=== PATIENT | female | born 1975 | race Caucasian/White ===

== ENCOUNTER → 2017-01-14 | Outpatient (CLI) | payer BC ==
--- NOTE | 2017-01-14 08:15 | CT ---
EXAMINATION TYPE: CT abdomen pelvis wo con DATE OF EXAM: 01/14/2017 COMPARISON: NONE HISTORY: Abdominal pain; Right flank & groin pain. History of renal stones. CT DLP: 732.90 mGycm Examination of the solid and hollow viscera is limited given the lack of contrast. FINDINGS: LUNG BASES: No evidence for nodule. No evidence for infiltrate. LIVER/GB: The gallbladder is unremarkable. No space-occupying hepatic lesion. PANCREAS: No pancreatic mass identified. No inflammatory process seen. SPLEEN: No evidence for splenomegaly. No intrasplenic lesions seen. ADRENALS: No adrenal nodules identified. No evidence for thickening. KIDNEYS: No evidence for renal mass. 1 cm on nonobstructing calculus in the region of the right renal pelvis. No additional renal calculi seen. No evidence for hydronephrosis at this time. BOWEL: Appendix has a normal appearance. No evidence of bowel obstruction. No inflammatory process. Lymph nodes: No evidence for adenopathy greater than 1 cm. Abdominal aorta: Atheromatous changes seen. No evidence for aneurysm. Genital organs: Hysterectomy changes. No evidence for adnexal mass.. Other: No significant abnormality. IMPRESSION: 1. NONOBSTRUCTING CALCULUS IN THE REGION OF THE RIGHT RENAL PELVIS DESCRIBED ABOVE.
== END | disposition home or self-care (01) ==
LOC: RADCTMAIN 07:29
PROVIDERS: ATTEND Family Medicine
DX: N20.0 Calculus of kidney (principal)
CPT/HCPCS: 74176

== ENCOUNTER 2017-03-20 15:48 | Emergency (ER) | payer BC ==
[2017-03-20 16:03] VITALS: RESP 18
--- NOTE | 2017-03-20 17:30 | ED ---
General Adult HPI - General Chief complaint: Extremity Injury, Lower Stated complaint: right foot pain/swelling Time Seen by Provider: 03/20/17 16:01 Source: patient, RN notes reviewed Mode of arrival: ambulatory Limitations: no limitations - History of Present Illness Initial comments: This is a 41-year-old female who presents to the emergency department with chief complaint of right foot pain and swelling. Patient states that she had a right lithotripsy performed on February 24. One week later she noted that her right foot was swollen. She states that a couple days ago she noticed some bruising of the right foot and that it became painful. She states that last night she had some shooting of pain up her right calf. She states that toes 2 and 3 on the right foot feel numb and her foot feels like it is asleep. Patient states that since her procedure she has decreased activity. She has been working from the home and has not been using her treadmill regularly. She states that before the procedure she was getting at least 10,000 steps/day and recently has only been walking 4,000 steps/day. Patient states she looked online and is worried that she may have a blood clot in the right lower extremity. Denies any oral contraceptives, she received a hysterectomy many years ago. Denies any specific injury or trauma to the right foot. Patient states "I would know if I hurt myself." Denies fever, chills, chest pain, shortness of breath, abdominal pain, nausea or vomiting, constipation or diarrhea, dysuria or hematuria, numbness or tingling, headache or vision changes. - Related Data Home Medications Medication Instructions Recorded Confirmed Cyanocobalamin (Vitamin B-12) 1,000 mcg PO DAILY 03/20/17 03/20/17 [Vitamin B-12] Lisinopril [Prinivil] 10 mg PO DAILY 03/20/17 03/20/17 Montelukast [Singulair] 10 mg PO DAILY 03/20/17 03/20/17 [place]-3 Fatty Acids/Fish Oil [Fish 2 cap PO DAILY 03/20/17 03/20/17 Oil 1,000 mg Softgel] Terbinafine [LamISIL] 250 mg PO DAILY 03/20/17 03/20/17 Triamterene-Hctz 37.5-25Mg 1 cap PO Q7D 03/20/17 03/20/17 [Dyazide 37.5-25 Capsule] Vitamin B Complex 1 tab PO DAILY 03/20/17 03/20/17 Allergies Allergy/AdvReac Type Severity Reaction Status Date / Time No Known Allergies Allergy Verified 03/20/17 16:29 Review of Systems ROS Statement: Those systems with pertinent positive or pertinent negative responses have been documented in the HPI. ROS Other: All systems not noted in ROS Statement are negative. Past Medical History Past Medical History: Hypertension History of Any Multi-Drug Resistant Organisms: None Reported Additional Past Surgical History / Comment(s): lithotripsy Past Psychological History: No Psychological Hx Reported Smoking Status: Never smoker Past Alcohol Use History: Occasional Past Drug Use History: None Reported General Exam - General Exam Comments Initial Comments: General: Awake and alert, well-developed; in no apparent distress. HEENT: Head atraumatic, normocephalic. Pupils are equal, round and reactive to light. Extraocular movements intact. Neck: Supple. Normal ROM. Cardiovascular: Regular rate and rhythm. No murmurs, rubs or gallops. Chest symmetrical. Respiratory: Lungs clear to auscultation bilaterally. No wheezes, rales or rhonchi. Normal respiratory effort with no use of accessory muscles. Musculoskeletal: Normal active and passive range of motion of right ankle and foot. There is mild swelling to the ankle and dorsal foot with some bruising noted. There is no tenderness on palpation of the foot. Sensation is intact. Pedal pulses are 2+ equal and palpable bilaterally. Skin: Reed, warm and dry without rashes or lesions. Neurological: Alert and oriented x3. CN II-XII grossly intact. Speech is fluent and answers are appropriate. No focal neuro deficits. Psychiatric: Normal mood and affect. No overt signs of depression or anxiety noted. Limitations: no limitations Course Vital Signs 03/20/17 16:00 Temperature 97.9 F Pulse Rate 95 Respiratory 18 Rate Blood Pressure 154/96 O2 Sat by Pulse 97 Oximetry Medical Decision Making - Medical Decision Making This is a 41-year-old female who presents to the emergency department with chief complaint of right foot swelling and pain. She denied any specific injury or trauma to the foot. Ultrasound Venous Doppler of right lower extremity revealed no evidence for acute DVT. she does state that she deals with chronic edema due to hypertension. This case was discussed with attending physician, Dr. Bernstein. Recommended follow up with her primary care provider. Patient's vital signs are stable and she is in no acute distress. She'll be discharged home at this time. She voices understanding. All questions were answered. - Radiology Data Radiology results: report reviewed Ultrasound Venous Doppler right lower extremity impression: Negative for DVT. Disposition Clinical Impression: Foot swelling Disposition: HOME SELF-CARE Condition: Good Instructions: Leg Edema (ED) Additional Instructions: Please follow up with primary care provider within 1-2 days. Return to emergency department if symptoms should worsen or any concerns arise. Referrals: Nydia Acosta DO [Primary Care Provider] - 1-2 days Time of Disposition: 18:32
--- NOTE | 2017-03-20 17:48 | US ---
EXAMINATION TYPE: US venous doppler duplex LE RT DATE OF EXAM: 03/20/2017 5:30 PM COMPARISON: NONE CLINICAL HISTORY: pain and swelling. Right leg edema SIDE PERFORMED: Right TECHNIQUE: The lower extremity deep venous system is examined utilizing real time linear array sonog kristen with graded compression, doppler sonography and color-flow sonography. VESSELS IMAGED: External Iliac Vein (EIV) Common Femoral Vein Deep Femoral Vein Greater Saphenous Vein * Femoral Vein Popliteal Vein Small Saphenous Vein * Proximal Calf Veins (* superficial vessels) DESCRIPTION: Grayscale, color doppler, spectral doppler imaging performed of the deep veins of the lo wer extremities. There is normal flow, compressibility, vascular waveforms. IMPRESSION: NEGATIVE FOR DVT, RIGHT LOWER EXTREMITY.
[2017-03-20 18:43] VITALS: BP 134/87; PULSE 87; TEMP 97.4
== END 2017-03-20 18:43 | disposition home or self-care (01) ==
LOC: EC 15:48
DX: M79.89 Other specified soft tissue disorders (principal); M79.671 Pain in right foot; M79.661 Pain in right lower leg; R60.0 Localized edema; I10 Essential (primary) hypertension; Z79.899 Other long term (current) drug therapy
CPT/HCPCS: 99283

== ENCOUNTER → 2017-12-15 | Outpatient (CLI) | payer BC ==
--- NOTE | 2017-12-15 16:17 | CT ---
EXAMINATION TYPE: CT abdomen pelvis wo con DATE OF EXAM: 12/15/2017 COMPARISON: 03/04/2017 HISTORY: RLQ pain CT DLP: 1073 mGycm Automated exposure control for dose reduction was used. TECHNIQUE: Helical acquisition of images was performed from the lung bases through the pelvis. FINDINGS: LUNG BASES: No significant abnormality is appreciated. LIVER/GB: No significant abnormality is appreciated. PANCREAS: Pancreatic tail calcification noted. SPLEEN: Furnace Puncher a splenule noted.. ADRENALS: No significant abnormality is seen. KIDNEYS: No significant abnormality is seen. ADENOPATHY: None visualized. OSSEOUS STRUCTURES: Sclerotic densities involving the vertebral bodies are nonspecific. Hypertrophic changes of the spine noted.. BOWEL: The stomach is distended. Appendix is normal.. OTHER: Prominent soft tissue densities are seen in the pelvis measuring 4 cm on the right. Likely rel ated to the ovaries. Recommend pelvic ultrasound. Tiny fat-containing periumbilical hernia noted. IMPRESSION: 1. The stomach is distended with debris correlate for gastroparesis or gastric outlet obstruction. 2. There are prominent soft tissue densities in both adnexa likely related to ovaries. Correlation [facility] pelvic ultrasound is recommended to assess for ovarian pathology. 3. Normal appendix
--- NOTE | 2017-12-15 18:31 | US ---
EXAMINATION TYPE: US pelvic complete DATE OF EXAM: 12/15/2017 COMPARISON: NONE CLINICAL HISTORY: N83.9 Noninflam disorder of ovary. F/U to CT scan TECHNIQUE: Transabdominal (TA). EXAM MEASUREMENTS: Uterus: Surgically absent cm Endometrial Stripe: Surgically absent cm Right Ovary: 2.9 x 3.5 x 2.5 cm Left Ovary: 3.5 x 2.4 x 2.4 cm 1. Uterus: Surgically absent 2. Endometrium: Surgically absent 3. Right Ovary: wnl 4. Left Ovary: wnl 5. Bilateral Adnexa: wnl 6. Posterior cul-de-sac: wnl IMPRESSION: Hysterectomy noted. No adnexal mass or free fluid.
== END | disposition home or self-care (01) ==
LOC: RADCTMAIN 15:44
PROVIDERS: ATTEND Family Medicine
DX: K31.89 Other diseases of stomach and duodenum (principal); N83.8 Other noninflammatory disorders of ovary, fallopian tube and broad ligament; Z90.710 Acquired absence of both cervix and uterus
CPT/HCPCS: 74176; 76856

== ENCOUNTER → 2018-01-22 | Outpatient (CLI) | payer BC ==
--- NOTE | 2018-01-22 11:11 | US ---
EXAMINATION TYPE: US abdomen complete DATE OF EXAM: 01/22/2018 COMPARISON: CT 12/15/2017 CLINICAL HISTORY: R10.9 Abdominal Pain. Right flank pain EXAM MEASUREMENTS: Liver Length: 16.9 cm Gallbladder Wall: 0.1 cm CBD: 0.2 cm Spleen: 10.2 cm Right Kidney: 11.7 x 4.2 x 4.9 cm Left Kidney: 10.9 x 4.5 x 4.2 cm Pancreas: Obscured by bowel gas, visualized portions wnl Liver: Heterogeneous Gallbladder: wnl Evidence for sonographic Yost's sign: No CBD: wnl Spleen: Accessory spleen measuring 1.3 cm Right Kidney: No hydronephrosis or masses seen Left Kidney: No hydronephrosis or masses seen Upper IVC: wnl Abd Aorta: wnl Kidneys show normal cortical medullary differentiation. There is no ascites. IMPRESSION: Exam is somewhat limited. There may be a component of underlying hepatocellular disease, hepatic steatosis.
== END ==
LOC: RADUSWWP 10:17
PROVIDERS: ATTEND Family Medicine
DX: R10.9 Unspecified abdominal pain (principal)
CPT/HCPCS: 76700

== ENCOUNTER → 2019-09-28 | Outpatient (CLI) | payer BC ==
--- NOTE | 2019-09-28 15:39 | US ---
EXAMINATION TYPE: US venous doppler duplex LE RT DATE OF EXAM: 09/28/2019 1:16 PM COMPARISON: US 2017 CLINICAL HISTORY: M79.604 PAIN IN RT LEG. Intermittent right leg swelling x 2 weeks, patient taking a spirin SIDE PERFORMED: Right TECHNIQUE: The lower extremity deep venous system is examined utilizing real time linear array sonog kristen with graded compression, doppler sonography and color-flow sonography. VESSELS IMAGED: External Iliac Vein (EIV) Common Femoral Vein Deep Femoral Vein Greater Saphenous Vein * Femoral Vein Popliteal Vein Small Saphenous Vein * Proximal Calf Veins (* superficial vessels) Right Leg: Appears negative for DVT IMPRESSION: 1. Right lower extremity ultrasound negative for deep venous thrombosis
== END | disposition home or self-care (01) ==
LOC: RADUSWWP 12:55
PROVIDERS: ATTEND Family Medicine
DX: M79.604 Pain in right leg (principal)

== ENCOUNTER 2020-06-10 06:49 | Inpatient (IN) | payer BC ==
[2020-06-10] MEDS ORDERED: SODIUM CHLORIDE 0.9% 500 ML 500 ML IV STA (07:03)
[2020-06-10] MEDS ORDERED: DEXAMETHASONE SOD PHOSPHATE 10 MG/ML 1 ML VIAL IV STA (07:05)
[2020-06-10] MEDS ORDERED: IBUPROFEN 600 MG TAB PO STA (07:05)
--- NOTE | 2020-06-10 07:08 | ED ---
General Adult HPI - General Source: patient, RN notes reviewed Mode of arrival: ambulatory Limitations: no limitations <Britton Gutierrez - Last Filed: 06/10/20 09:29> <Ryan Gonzalez - Last Filed: 06/10/20 09:40> - General Chief complaint: Shortness of Breath Stated complaint: Covid + Time Seen by Provider: 06/10/20 06:58 - History of Present Illness Initial comments: 44-year-old female presents emergency Department with chief complaint of shortness of breath. Patient states she started 8 days ago with cough and cold- like symptoms. Patient tested positive for covid 19 on Friday. Patient states that her symptoms have progressively worsened. Patient does have mild asthma. Patient reports no fevers or chills. Denies any chest pain states is just tight no leg pain and leg swelling. No history DVT or PE. Patient has slight nausea no vomiting. She did take some callus morning or Motrin. Patient's been having on and off fevers. Patient states that she woke up her pulse ox was 78. Patient states she was able to get up to the 90s. (Britton Gutierrez) - Related Data Home Medications Medication Instructions Recorded Confirmed Cyanocobalamin (Vitamin B-12) 1,000 mcg PO DAILY 03/20/17 03/20/17 [Vitamin B-12] Lisinopril [Prinivil] 10 mg PO DAILY 03/20/17 03/20/17 Montelukast [Singulair] 10 mg PO DAILY 03/20/17 03/20/17 [place]-3 Fatty Acids/Fish Oil [Fish 2 cap PO DAILY 03/20/17 03/20/17 Oil 1,000 mg Softgel] Terbinafine [LamISIL] 250 mg PO DAILY 03/20/17 03/20/17 Triamterene-Hctz 37.5-25Mg 1 cap PO Q7D 03/20/17 03/20/17 [Dyazide 37.5-25 Capsule] Vitamin B Complex 1 tab PO DAILY 03/20/17 03/20/17 Allergies Allergy/AdvReac Type Severity Reaction Status Date / Time No Known Allergies Allergy Verified 06/10/20 06:53 Review of Systems ROS Other: All systems not noted in ROS Statement are negative. <Britton Gutierrez - Last Filed: 06/10/20 09:29> ROS Other: All systems not noted in ROS Statement are negative. <CarlosRyan - Last Filed: 06/10/20 09:40> ROS Statement: Those systems with pertinent positive or pertinent negative responses have been documented in the HPI. Past Medical History Past Medical History: Hypertension History of Any Multi-Drug Resistant Organisms: None Reported Past Surgical History: Hysterectomy, Tonsillectomy Additional Past Surgical History / Comment(s): lithotripsy Past Psychological History: No Psychological Hx Reported Smoking Status: Never smoker Past Alcohol Use History: Rare Past Drug Use History: None Reported <Britton Gutierrez - Last Filed: 06/10/20 09:29> General Exam Limitations: no limitations General appearance: alert, in no apparent distress Head exam: Present: atraumatic, normocephalic, normal inspection Eye exam: Present: normal appearance, PERRL, EOMI. Absent: scleral icterus, conjunctival injection, periorbital swelling ENT exam: Present: normal exam, normal oropharynx, mucous membranes moist, TM's normal bilaterally Neck exam: Present: normal inspection, full ROM. Absent: tenderness, menin gismus, lymphadenopathy Respiratory exam: Present: normal lung sounds bilaterally. Absent: respiratory distress, wheezes, rales, rhonchi, stridor Cardiovascular Exam: Present: normal rhythm, tachycardia, normal heart sounds. Absent: systolic murmur, diastolic murmur, rubs, gallop, clicks GI/Abdominal exam: Present: soft, normal bowel sounds. Absent: distended, tenderness, guarding, rebound, rigid Back exam: Absent: CVA tenderness (R), CVA tenderness (L) Neurological exam: Present: alert, oriented X3 Skin exam: Present: warm, dry, intact, normal color. Absent: rash <Britton Gutierrez - Last Filed: 06/10/20 09:29> Course <CarlosRyan - Last Filed: 06/10/20 09:40> Vital Signs 06/10/20 06/10/20 06/10/20 06:53 07:08 09:25 Temperature 99.6 F 98.9 F Pulse Rate 124 H 126 H 96 Respiratory 18 20 18 Rate Blood Pressure 130/80 125/83 O2 Sat by Pulse 92 L 95 95 Oximetry - Reevaluation(s) Reevaluation #1: 06/10/20 09:40 Case reviewed with patient will be admitted I do agree with the assessment and plan. (Ryan Gonzalez) EKG Findings - EKG Comments: EKG Findings:: EKG performed at 17:09 sinus tachycardia rate 120. 160 QRS 86 QTC is QTC 312/440 <Britton Gutierrez - Last Filed: 06/10/20 09:29> Medical Decision Making - Lab Data Result diagrams: 06/10/20 07:25 06/10/20 07:25 <Britton Gutierrez - Last Filed: 06/10/20 09:29> - Lab Data Result diagrams: 06/10/20 07:25 06/10/20 07:25 <Ryan Gonzalez - Last Filed: 06/10/20 09:40> - Medical Decision Making 44-year-old presented for dyspnea. Patient has a known covid Positive. Patient has bilateral infiltrates. Negative for PE. Patient was hypoxic. Patient is improved on oxygen currently. Case discussed with Dr. Enriquez was admitted with pulmonary and infectious disease consult. (Britton Gutierrez) - Lab Data Lab Results 06/10/20 06/10/20 06/10/20 Range/Units 07:25 07:25 07:25 WBC 9.6 (3.8-10.6) k/uL RBC 4.54 (3.80-5.40) m/uL Hgb 13.9 (11.4-16.0) gm/dL Hct 41.7 (34.0-46.0) % MCV 91.8 (80.0-100.0) fL MCH 30.5 (25.0-35.0) pg MCHC 33.2 (31.0-37.0) g/dL RDW 13.7 (11.5-15.5) % Plt Count 202 (150-450) k/uL MPV 7.5 Neutrophils % 88 % Lymphocytes % 7 % Monocytes % 3 % Eosinophils % 0 % Basophils % 0 % Neutrophils # 8.5 H (1.3-7.7) k/uL Lymphocytes # 0.7 L (1.0-4.8) k/uL Monocytes # 0.3 (0-1.0) k/uL Eosinophils # 0.0 (0-0.7) k/uL Basophils # 0.0 (0-0.2) k/uL PT 10.0 (9.0-12.0) sec INR 0.9 (<1.2) APTT 22.9 (22.0-30.0) sec D-Dimer 0.75 H (<0.60) mg/L FEU Sodium 133 L (137-145) mmol/L Potassium 4.1 (3.5-5.1) mmol/L Chloride 97 L (98-107) mmol/L Carbon Dioxide 22 (22-30) mmol/L Anion Gap 14 mmol/L BUN 15 (7-17) mg/dL Creatinine 0.60 (0.52-1.04) mg/dL Est GFR (CKD-EPI)AfAm >90 (>60 ml/min/1.73 sqM) Est GFR (CKD-EPI)NonAf >90 (>60 ml/min/1.73 sqM) Glucose 220 H (74-99) mg/dL Plasma Lactic Acid Aime (0.7-2.0) mmol/L Calcium 8.9 (8.4-10.2) mg/dL Magnesium 1.8 (1.6-2.3) mg/dL Total Bilirubin 0.9 (0.2-1.3) mg/dL AST 60 H (14-36) U/L ALT 36 H (4-34) U/L Alkaline Phosphatase 136 H (38-126) U/L Troponin I (0.000-0.034) ng/mL C-Reactive Protein 262.5 H (<10.0) mg/L Total Protein 7.7 (6.3-8.2) g/dL Albumin 4.1 (3.5-5.0) g/dL 06/10/20 06/10/20 Range/Units 07:25 07:25 WBC (3.8-10.6) k/uL RBC (3.80-5.40) m/uL Hgb (11.4-16.0) gm/dL Hct (34.0-46.0) % MCV (80.0-100.0) fL MCH (25.0-35.0) pg MCHC (31.0-37.0) g/dL RDW (11.5-15.5) % Plt Count (150-450) k/uL MPV Neutrophils % % Lymphocytes % % Monocytes % % Eosinophils % % Basophils % % Neutrophils # (1.3-7.7) k/uL Lymphocytes # (1.0-4.8) k/uL Monocytes # (0-1.0) k/uL Eosinophils # (0-0.7) k/uL Basophils # (0-0.2) k/uL PT (9.0-12.0) sec INR (<1.2) APTT (22.0-30.0) sec D-Dimer (<0.60) mg/L FEU Sodium (137-145) mmol/L Potassium (3.5-5.1) mmol/L Chloride (98-107) mmol/L Carbon Dioxide (22-30) mmol/L Anion Gap mmol/L BUN (7-17) mg/dL Creatinine (0.52-1.04) mg/dL Est GFR (CKD-EPI)AfAm (>60 ml/min/1.73 sqM) Est GFR (CKD-EPI)NonAf (>60 ml/min/1.73 sqM) Glucose (74-99) mg/dL Plasma Lactic Acid Aime 1.0 (0.7-2.0) mmol/L Calcium (8.4-10.2) mg/dL Magnesium (1.6-2.3) mg/dL Total Bilirubin (0.2-1.3) mg/dL AST (14-36) U/L ALT (4-34) U/L Alkaline Phosphatase (38-126) U/L Troponin I <0.012 (0.000-0.034) ng/mL C-Reactive Protein (<10.0) mg/L Total Protein (6.3-8.2) g/dL Albumin (3.5-5.0) g/dL Disposition <Britton Gutierrez - Last Filed: 06/10/20 09:29> <Ryan Gonzalez - Last Filed: 06/10/20 09:40> Clinical Impression: Pneumonia due to COVID-19 virus, Hypoxia Disposition: ADMITTED IP TO THIS HOSP Referrals: None,Stated [REFERRING] - 1-2 days
[2020-06-10 07:32] LABS: Basophils % (A) 0 %; Eosinophils % (A) 0 %; HCT 41.7 % (34.0-46.0); HGB 13.9 gm/dL (11.4-16.0); Lymphocytes # (A) 0.7 k/uL (1.0-4.8); Lymphocytes % (A) 7 %; MCH 30.5 pg (25.0-35.0); MCHC 33.2 g/dL (31.0-37.0); MCV 91.8 fL (80.0-100.0); Mean Platelet Volume 7.5; Monocytes # (A) 0.3 k/uL (0-1.0); Monocytes % (A) 3 %; Neutrophils # (A) 8.5 k/uL (1.3-7.7); Neutrophils % (A) 88 %; Platelet Count 202 k/uL (150-450); RBC 4.54 m/uL (3.80-5.40); RDW 13.7 % (11.5-15.5); WBC 9.6 k/uL (3.8-10.6)
[2020-06-10 07:46] LABS: ALT 36 U/L (4-34); African American GFR (CKD) >90 (>60 ml/min/1.73 sqM); Albumin 4.1 g/dL (3.5-5.0); Anion Gap 14 mmol/L; Blood Urea Nitrogen 15 mg/dL (7-17); Calcium 8.9 mg/dL (8.4-10.2); Carbon Dioxide 22 mmol/L (22-30); Chloride 97 mmol/L (98-107); Glucose 220 mg/dL (74-99); Non-African American GFR(CKD) >90 (>60 ml/min/1.73 sqM); Sodium 133 mmol/L (137-145); Total Bilirubin 0.9 mg/dL (0.2-1.3); Total Protein 7.7 g/dL (6.3-8.2)
[2020-06-10 07:58] LABS: INR 0.9 (<1.2); Partial Thromboplastin Time 22.9 sec (22.0-30.0)
[2020-06-10 08:05] LABS: D-Dimer 0.75 mg/L FEU (<0.60)
[2020-06-10 08:08] LABS: AST 60 U/L (14-36); Alkaline Phosphatase 136 U/L (38-126); Magnesium 1.8 mg/dL (1.6-2.3); Potassium 4.1 mmol/L (3.5-5.1)
[2020-06-10 08:31] LABS: C Reactive Protein 262.5 mg/L (<10.0)
--- NOTE | 2020-06-10 08:42 | XR ---
EXAMINATION TYPE: XR chest 2V DATE OF EXAM: 06/10/2020 COMPARISON: 03/14/2010 INDICATION: Difficulty breathing TECHNIQUE: Frontal and lateral views of the chest are obtained. FINDINGS: The heart size is normal. The pulmonary vasculature is prominent. There is fullness in the left perihilar region. Peripheral right upper lobe infiltrate is present. Mi ld left lower lobe infiltrate is present. Findings are nonspecific but can be compatible with atypica l pneumonia. IMPRESSION: 1. Diffuse scattered infiltrates can be compatible with atypical pneumonia in the proper clinical set ting.
--- NOTE | 2020-06-10 09:25 | CT ---
CT CHEST FOR PULMONARY EMBOLISM. EXAMINATION TYPE: CT chest angio for PE DATE OF EXAM: 06/10/2020 INDICATION: SOB, Covid positive CT DLP: 493.2 mGycm, Automated exposure control for dose reduction was used. CONTRAST: Patient injected with 63 mL of Isovue 370. COMPARISON: None TECHNIQUE: CT of the chest is performed on a spiral scan at 2 mm thick sections. Study is performed with intravenous contrast timed for evaluation for pulmonary embolism. This will limit additional po rtions of the evaluation. 3-D MIP images reconstructed by the technologist are reviewed on the compu ter in the coronal and sagittal planes. FINDINGS: No persistent filling defects are evident to suggest an acute pulmonary embolism. There is some hypod ensity within left perihilar pulmonary arteries in the coronal reconstructed images. However, this ap pears to be artifact in the axial plane. Some mild chronic nonobstructive thrombus could be considere d. This could be artifact from the contrast timing as well. There is fullness to the subcarinal region. The enlarged adenopathy may be present. A few small perih ilar lymph nodes may be present. Small pretracheal lymph nodes are present The ascending aorta diamet er at the level of the main pulmonary artery is 3.0 cm. The main pulmonary artery diameter at the bi furcation is 2.6 cm. Patchy groundglass opacities and infiltrates are present bilaterally greater in the periphery, compat ible with atypical pneumonia in the proper clinical setting. Limited CT section through the upper abdomen. There is mild fatty infiltration of the liver. IMPRESSIONS: 1. Scattered groundglass opacities bilateral lung peralta can be compatible with Covid Pneumonia. 2. No acute pulmonary embolism. Artifact or possibly some chronic thrombus within the left perihilar pulmonary arteries may be present.
[2020-06-10] MEDS ORDERED: IBUPROFEN 400 MG TAB PO PRN (09:39)
[2020-06-10] MEDS ORDERED: ONDANSETRON 4 MG/2 ML VIAL IVP PRN (09:39)
[2020-06-10] MEDS ORDERED: NALOXONE 0.4 MG/ML 1 ML VIAL IV PRN (09:39)
[2020-06-10] MEDS ORDERED: TRIAMTERENE-HCTZ 37.5-25MG 1 EACH CAP PO SCH (09:45)
[2020-06-10] MEDS ORDERED: REMDESIVIR 200 MG in SODIUM CHLORIDE 0.9% 250 ML IVPB ONE (11:00)
[2020-06-10] MEDS: ZINC SULFATE 220 MG CAP PO SCH (12:49)
[2020-06-10] MEDS: ASCORBIC ACID 500 MG TAB PO SCH (12:49)
[2020-06-10] MEDS: CHOLECALCIFEROL 25 MCG (1000 IU) TABLET PO SCH (12:49)
[2020-06-10] MEDS: ENOXAPARIN 40 MG/0.4 ML SYRINGE SQ SCH (12:50)
--- NOTE | 2020-06-10 13:44 | P.CNPUL ---
History of Present Illness Consult date: 06/10/20 Requesting physician: Ephraim Lira Reason for consult: dyspnea, cough, hypoxemia, pneumonia, abnormal CXR/CT Chief complaint: Shortness of breath, cough, fever. History of present illness: 44-year-old female, who presents to the emergency department, on June 10, complaining of shortness of breath, cough, chest congestion, fever, chills, muscle aches, and joint aches. She tested positive for COVID 19 on Friday. She has had symptoms for about 7 days. Her symptoms have gotten progressively worse. She denies any chest pain or pressure although she denies described pain in her chest when she coughs. She had slight nausea without vomiting. She was seen in the emergency room, and admitted with a diagnosis of COVID 19 pneumonia, and hypoxemic respiratory failure. Chest x-ray showed diffuse scattered infiltrates bilaterally, and computed tomography scan was negative for pulmonary embolism, but did show bilateral scattered groundglass opacities that are consistent with COVID 19. Currently, the patient's on 3 L nasal cannula. White count 9.6, hemoglobin 13.9, hematocrit 41.7, platelet count 202,000. PT INR and PTT all normal. D-dimer was 0.75. Sodium 133, potassium 4.1, chloride 97, CO2 22, anion gap 14, BUN 15, and creatinine 0.60. Review of Systems REVIEW OF SYSTEMS: CONSTITUTIONAL: Fever, chills, muscle aches, joint aches, and fatigue. NEUROLOGIC: [ Negative.] HEENT: [ Negative.] CARDIAC: [Negative.] PULMONARY: Shortness of breath, cough, chest congestion, chest tightness. GI: Nausea. : [Negative.] RHEUMATOLOGIC: [ Negative.] IMMUNOLOGIC: [ Negative.] ENDOCRINE: [Negative. ] DERMATOLOGIC: [Negative.] Past Medical History Past Medical History: Hypertension History of Any Multi-Drug Resistant Organisms: None Reported Past Surgical History: Hysterectomy, Tonsillectomy Additional Past Surgical History / Comment(s): lithotripsy Past Psychological History: No Psychological Hx Reported Smoking Status: Never smoker Past Alcohol Use History: Rare Past Drug Use History: None Reported Medications and Allergies Home Medications Medication Instructions Recorded Confirmed Type Losartan [Cozaar] 50 mg PO DAILY 06/10/20 06/10/20 History Multivitamins, Thera [Multivitamin 1 tab PO DAILY 06/10/20 06/10/20 History (formulary)] Sertraline [Zoloft] 100 mg PO HS 06/10/20 06/10/20 History Allergies Allergy/AdvReac Type Severity Reaction Status Date / Time No Known Allergies Allergy Verified 06/10/20 09:58 Physical Exam Osteopathic Statement: *. No significant issues noted on an osteopathic structural exam other than those noted in the History and Physical/Consult. Vitals: Vital Signs Temp Pulse Pulse Resp BP BP Pulse Ox 06/10/20 11:32 93 L 06/10/20 10:35 98.2 F 76 18 113/71 94 L 06/10/20 09:25 98.9 F 96 18 125/83 95 06/10/20 07:08 126 H 20 95 06/10/20 06:53 99.6 F 124 H 18 130/80 92 L Intake and Output 06/09/20 06/10/20 06/10/20 22:59 06:59 14:59 Other: Weight 111.266 kg 111.266 kg No acute distress, oriented 3. Currently on nasal O2 at 3 L with a saturation 93%. No conversational dyspnea, or use of accessory muscles. HEENT examination is grossly unremarkable. Mucous membranes are moist. No oral lesions. Neck supple. Full range of motion. No adenopathy thyromegaly or neck vein distention. Cardiovascular examination reveals regular rhythm rate. S1-S2 normal. No S3 or S4. No discernible murmur noted. Heart rate 76 bpm. Lungs reveal bilateral rhonchi and crackles. Breath sounds equal bilaterally. No wheezes are auscultated. Breath sounds equal bilaterally. Abdomen soft bowel sounds are heard. No masses or tenderness. Extremities are intact. No cyanosis clubbing or edema. Skin is without rash or lesion. Neurologic examination is brief but nonfocal. Results - Laboratory Findings CBC and BMP: 06/10/20 07:25 06/10/20 07:25 PT/INR, D-dimer PT 10.0 sec (9.0-12.0) 06/10/20 07:25 INR 0.9 (<1.2) 06/10/20 07:25 D-Dimer 0.75 mg/L FEU (<0.60) H 06/10/20 07:25 Abnormal lab findings: Abnormal Labs 06/10/20 06/10/20 06/10/20 07:25 07:25 07:25 Neutrophils # 8.5 H Lymphocytes # 0.7 L D-Dimer 0.75 H Sodium 133 L Chloride 97 L Glucose 220 H AST 60 H ALT 36 H Alkaline Phosphatase 136 H C-Reactive Protein 262.5 H - Diagnostic Findings Chest x-ray: image reviewed CT scan - chest: image reviewed Assessment and Plan Assessment: Acute hypoxemic respiratory failure secondary to COVID 19 pneumonia. History of hypertension. History of lithotripsy. Plan: Plan dated 06/10/2020. Because the patient's symptoms began about 7 days ago, she will get a REM, as well as Decadron, zinc, vitamin C, vitamin D3, Lovenox, and Decadron. We will continue to watch as patient very closely to see whether or not she responds to medications, or she deteriorates. Additional recommendations and suggestions are forthcoming. We will continue to see this patient. Prognosis is guarded. Chest x-ray, and CAT scan are reviewed. Laboratory data is reviewed. All this is explained to the patient in detail. Time with Patient: Greater than 30
--- NOTE | 2020-06-10 16:46 | P.HPIM ---
History of Present Illness H&P Date: 06/10/20 Chief Complaint: Shortness of breath 44-year-old female, who presents to the emergency department, on June 10, complaining of shortness of breath, cough, chest congestion, fever, chills, muscle aches, and joint aches. She tested positive for COVID 19 on Friday. She has had symptoms for about 7 days. Her symptoms have gotten progressively worse. She denies any chest pain or pressure although she denies described pain in her chest when she coughs. She had slight nausea without vomiting. She was seen in the emergency room, and admitted with a diagnosis of COVID 19 pneumonia, and hypoxemic respiratory failure. Chest x-ray showed diffuse scattered infiltrates bilaterally, and computed tomography scan was negative for pulmonary embolism, but did show bilateral scattered groundglass opacities that are consistent with COVID 19. Currently, the patient's on 3 L nasal cannula. White count 9.6, hemoglobin 13.9, hematocrit 41.7, platelet count 202,000. PT INR and PTT all normal. D-dimer was 0.75. Sodium 133, potassium 4.1, chloride 97, CO2 22, anion gap 14, BUN 15, and creatinine 0.60. Review of Systems REVIEW OF SYSTEMS: CONSTITUTIONAL: No fever, no malaise, no fatigue. HEENT: No recent visual problems or hearing problems. Denied any sore throat. CARDIOVASCULAR: No chest pain, orthopnea, PND, no palpitations, no syncope. PULMONARY: Reports shortness of breath, cough, no hemoptysis. GASTROINTESTINAL: No diarrhea, no nausea, no vomiting, no abdominal pain. NEUROLOGICAL: No headaches, no weakness, no numbness. HEMATOLOGICAL: Denies any bleeding or petechiae. GENITOURINARY: Denies any burning micturition, frequency, or urgency. MUSCULOSKELETAL/RHEUMATOLOGICAL: Denies any joint pain, swelling, or any muscle pain. ENDOCRINE: Denies any polyuria or polydipsia. The rest of the 14-point review of systems is negative. Past Medical History Past Medical History: Hypertension History of Any Multi-Drug Resistant Organisms: None Reported Past Surgical History: Hysterectomy, Tonsillectomy Additional Past Surgical History / Comment(s): lithotripsy Past Psychological History: No Psychological Hx Reported Smoking Status: Never smoker Past Alcohol Use History: Rare Past Drug Use History: None Reported Medications and Allergies Home Medications Medication Instructions Recorded Confirmed Type Losartan [Cozaar] 50 mg PO DAILY 06/10/20 06/10/20 History Multivitamins, Thera [Multivitamin 1 tab PO DAILY 06/10/20 06/10/20 History (formulary)] Sertraline [Zoloft] 100 mg PO HS 06/10/20 06/10/20 History Allergies Allergy/AdvReac Type Severity Reaction Status Date / Time No Known Allergies Allergy Verified 06/10/20 09:58 Physical Exam Vitals: Vital Signs Temp Pulse Pulse Resp BP BP Pulse Ox 06/10/20 11:32 93 L 06/10/20 10:35 98.2 F 76 18 113/71 94 L 06/10/20 09:25 98.9 F 96 18 125/83 95 06/10/20 07:08 126 H 20 95 06/10/20 06:53 99.6 F 124 H 18 130/80 92 L Intake and Output 06/09/20 06/10/20 06/10/20 22:59 06:59 14:59 Other: Weight 111.266 kg 111.266 kg - Constitutional General appearance: Present: average body habitus, cooperative, no acute distress - EENT Eyes: Present: anicteric sclerae, EOMI, PERRLA, normal appearance ENT: Present: hearing grossly normal, normal oropharynx Ears: bilateral: normal - Neck Neck: Present: normal ROM. Absent: lymphadenopathy, rigidity, thyromegaly Carotids: negative: bruit present Thyroid: bilateral: normal size, negative: enlarged, nodule - Respiratory Respiratory: bilateral: CTA, negative: rales, rhonchi, wheezing - Cardiovascular Rhythm: regular Heart sounds: normal: S1, S2 Abnormal Heart Sounds: Absent: systolic murmur, diastolic murmur - Gastrointestinal General gastrointestinal: Present: normal bowel sounds, soft. Absent: distended, organomegaly, tenderness - Genitourinary Genitourinary Comment(s): deferred - Integumentary Integumentary: Present: normal turgor. Absent: jaundiced, rash, ulcer - Neurologic Neurologic: Present: CNII-XII intact. Absent: focal deficits - Musculoskeletal Musculoskeletal: Present: gait normal, strength equal bilaterally - Psychiatric Psychiatric: Present: A&O x's 3, appropriate affect, intact judgment & insight Results CBC & Chem 7: 06/10/20 07:25 06/10/20 07:25 Labs: Abnormal Lab Results - Last 24 Hours (Table) 06/10/20 06/10/20 06/10/20 Range/Units 07:25 07:25 07:25 Neutrophils # 8.5 H (1.3-7.7) k/uL Lymphocytes # 0.7 L (1.0-4.8) k/uL D-Dimer 0.75 H (<0.60) mg/L FEU Sodium 133 L (137-145) mmol/L Chloride 97 L (98-107) mmol/L Glucose 220 H (74-99) mg/dL AST 60 H (14-36) U/L ALT 36 H (4-34) U/L Alkaline Phosphatase 136 H (38-126) U/L C-Reactive Protein 262.5 H (<10.0) mg/L Thrombosis Risk Factor Assmnt - Choose All That Apply Each Factor Represents 1 point: Age 41-60 years Thrombosis Risk Factor Assessment Total Risk Factor Score: 1 Thrombosis Risk Factor Assessment Level: Low Risk Assessment and Plan Assessment: 1. Acute hypoxemic respiratory failure - O2 per nasal cannula and titrated to keep SpO2 greater than 90-92% 2. Covid 19 viral pneumonia - patient's symptoms began about 7 days ago, she will get a REM, as well as Decadron, zinc, vitamin C, vitamin D3, Lovenox, and Decadron. We will continue to watch as patient very closely to see whether or not she responds to medications, or she deteriorates. Additional recommendations and suggestions are forthcoming. 3. Hypertension; losartan 50 mg by mouth daily 4. Transaminitis; possibly secondary to 2; we will continue to monitor liver enzymes with plans to order hepatic ultrasound if liver enzymes continue to trend up 5. Depression; Zoloft 100 mg by mouth daily at bedtime DVT prophylaxis; SCDs/subcu Lovenox CODE STATUS; full code
[2020-06-10] MEDS: ACETAMINOPHEN TAB 325 MG TAB PO PRN ×2 (17:00→23:37)
[2020-06-10] MEDS: SERTRALINE 100 MG TAB PO SCH (20:07)
--- NOTE | 2020-06-11 07:27 | CONS ---
CONSULTATION DATE OF SERVICE: 06/10/2020 REASON FOR CONSULTATION: COVID-19 infection. HISTORY OF PRESENT ILLNESS: The patient is a 44-year-old female presenting to the ER early this morning for evaluation of increased shortness of breath, cough, congestion and fever. The patient's symptoms have been going on for about 7 days before presentation to the hospital. The patient denies having any headache. She is complaining of some sore throat initially along with weakness and body aches. Subsequently starting having shortness of breath on minimal exertion, even at rest. The patient also has a cough which is moderate in intensity, not bringing up any sputum. Some nausea but no vomiting and denies significant diarrhea. The patient apparently was tested positive for COVID-19 on Friday. With progressive and worsening symptoms, the patient did present to the hospital. On arrival to the ER, the patient did have a low-grade fever of 99.6. The patient did have hypoxemia with O2 sats of 82% on room air, currently 90% on 3 L nasal cannula. The patient did have a normal white count with lymphopenia. D- dimer was mildly elevated at 0.75, creatinine was normal with an elevated CRP of 262.5. The patient did have a chest x-ray with diffuse scattered infiltrate compatible with atypical pneumonia. The patient also had a CT angiogram of the chest that was negative for PE but did shows patchy ground-glass opacity and infiltrate bilaterally. The patient has been admitted to the hospital. Infectious Disease was consulted for further management. REVIEW OF SYSTEMS: Positive points have been mentioned in HPI. Rest of the systems are negative. PAST MEDICAL HISTORY: Hypertension. PAST SURGICAL HISTORY: Hysterectomy and tonsillectomy. Lithotripsy. SOCIAL HISTORY: Patient denies smoking. Rarely drinks. No drug use. FAMILY HISTORY: No pertinent findings noticed. ALLERGIES: No known drug allergies. MEDICATIONS: The patient is currently on Tylenol, vitamin C, dexamethasone, Lovenox, Cozaar, Theragran, Narcan, Zofran, remdesivir and zinc. PHYSICAL EXAMINATION: VITAL SIGNS: Blood pressure 121/75 with a pulse of 105, temperature 98.6, she is 98% on 3 L nasal cannula. GENERAL DESCRIPTION: Patient is a middle-aged female lying in bed in no distress. No tachypnea or accessory muscles of respiration use. HEENT: Examination shows no pallor or scleral icterus. Oral mucous membrane is dry. NECK: Trachea central, no thyromegaly. LUNGS: Unlabored breathing, coarse breath sounds at the bases bilaterally. No wheeze. HEART: S1-S2, regular rate and rhythm. ABDOMEN: Soft, no tenderness. No guarding or rigidity. EXTREMITIES: No edema of the feet. SKIN: No rash or mass palpable. NEUROLOGICAL: Patient is awake, alert, oriented times three. Mood and affect normal. LABS: Hemoglobin is 13.8, white count 9.6. D-dimer is 0.75, creatinine 0.60. Electrolytes have been normal. Liver enzymes are elevated. CRP of 262. CT angiogram of the chest report as mentioned above. DIAGNOSTIC IMPRESSION: Patient admitted to the hospital with increasing shortness of breath and cough. This patient's symptoms have been going on for about a week before presentation to the hospital, likely secondary to acute COVID-19 infection in this patient who does have evidence of hypoxemia and duration of symptom qualifies for remdesivir therapy. PLAN: 1. Patient has been started on remdesivir protocol to continue. 2. Lovenox, dexamethasone, zinc, ascorbic acid. 3. Droplet isolation and respiratory support. 4. We will follow on clinical condition to further adjust medication if needed. Thank you for this consultation. Will follow this patient along with you. MMODL / IJN: [id number] /
[2020-06-11] MEDS ORDERED: MONTELUKAST 10 MG TAB PO SCH (09:00)
[2020-06-11] MEDS ORDERED: lisinopriL 10 MG TAB PO SCH (09:00)
[2020-06-11] MEDS: CHOLECALCIFEROL 25 MCG (1000 IU) TABLET PO SCH (09:03)
[2020-06-11] MEDS: ASCORBIC ACID 500 MG TAB PO SCH (09:03)
[2020-06-11] MEDS: MULTIVITAMINS, THERA 1 EACH TAB PO SCH (09:03)
[2020-06-11] MEDS: ZINC SULFATE 220 MG CAP PO SCH (09:03)
[2020-06-11] MEDS: LOSARTAN 50 MG TAB PO SCH (09:03)
[2020-06-11] MEDS: REMDESIVIR 100 MG in SODIUM CHLORIDE 0.9% 250 ML IVPB SCH (09:03)
[2020-06-11] MEDS: dexAMETHasone 2 MG TAB PO SCH (09:04)
[2020-06-11] MEDS: ENOXAPARIN 40 MG/0.4 ML SYRINGE SQ SCH (09:04)
[2020-06-11 11:50] LABS: Basophils % (A) 0 %; Eosinophils % (A) 0 %; HCT 41.5 % (34.0-46.0); HGB 13.6 gm/dL (11.4-16.0); Lymphocytes # (A) 0.9 k/uL (1.0-4.8); Lymphocytes % (A) 8 %; MCH 30.3 pg (25.0-35.0); MCHC 32.9 g/dL (31.0-37.0); MCV 92.2 fL (80.0-100.0); Mean Platelet Volume 7.2; Monocytes # (A) 0.3 k/uL (0-1.0); Monocytes % (A) 3 %; Neutrophils % (A) 88 %; Platelet Count 241 k/uL (150-450); RDW 13.4 % (11.5-15.5); WBC 11.3 k/uL (3.8-10.6)
[2020-06-11 12:04] LABS: ALT 34 U/L (4-34); AST 51 U/L (14-36); African American GFR (CKD) >90 (>60 ml/min/1.73 sqM); Albumin 3.5 g/dL (3.5-5.0); Albumin/Globulin Ratio 1.1; Alkaline Phosphatase 126 U/L (38-126); Anion Gap 8 mmol/L; Bilirubin,Unconjugated 0.4 mg/dL (0.0-1.1); Blood Urea Nitrogen 16 mg/dL (7-17); Calcium 8.7 mg/dL (8.4-10.2); Carbon Dioxide 28 mmol/L (22-30); Chloride 97 mmol/L (98-107); Globulin 3.1 g/dL; Glucose 193 mg/dL (74-99); LDH 881 U/L (313-618); Non-African American GFR(CKD) >90 (>60 ml/min/1.73 sqM); Potassium 3.4 mmol/L (3.5-5.1); Sodium 133 mmol/L (137-145); Total Bilirubin 0.5 mg/dL (0.2-1.3); Total Protein 6.6 g/dL (6.3-8.2)
--- NOTE | 2020-06-11 14:41 | P.PN ---
Subjective Progress Note Date: 06/11/20 Principal diagnosis: COVID Pneumonia. 44-year-old female, who presents to the emergency department, on June 10, complaining of shortness of breath, cough, chest congestion, fever, chills, muscle aches, and joint aches. She tested positive for COVID 19 on Friday. She has had symptoms for about 7 days. Her symptoms have gotten progressively worse. She denies any chest pain or pressure although she denies described pain in her chest when she coughs. She had slight nausea without vomiting. She was seen in the emergency room, and admitted with a diagnosis of COVID 19 pneumonia, and hypoxemic respiratory failure. Chest x-ray showed diffuse scattered infiltrates bilaterally, and computed tomography scan was negative for pulmonary embolism, but did show bilateral scattered groundglass opacities that are consistent with COVID 19. Currently, the patient's on 3 L nasal cannula. White count 9.6, hemoglobin 13.9, hematocrit 41.7, platelet count 202,000. PT INR and PTT all normal. D-dimer was 0.75. Sodium 133, potassium 4.1, chloride 97, CO2 22, anion gap 14, BUN 15, and creatinine 0.60. Progress note dated 06/11/2020. 44-year-old female who presented to the emergency department on June 10, complaining of shortness of breath, cough, chest congestion, fever, chills, muscle and joint aches. She tested positive for COVID 19 on Friday. Currently, temperature 98.1. She's on 3 L of nasal oxygen, with saturation of 91%. Heart rate is 86, respiratory rate 20. Blood pressure is stable. She's feeling only marginally better today. Her chest x-ray showed diffuse bilateral infiltrates, and computed tomography scan showed no evidence of pulmonary emb olism, but did show bilateral scattered groundglass opacities. White count 11.3, hemoglobin 13.6, hematocrit 41.5, platelet count 241,000. He time is 0.75. Sodium 133, potassium 3.4, chlorides 97, CO2 28, anion gap 8, BUN 16, creatinine 0.65. Objective - Vital Signs Vital signs: Vital Signs Temp 98.1 F 06/11/20 13:48 Pulse 86 06/11/20 13:48 Resp 18 06/11/20 13:48 BP 133/73 06/11/20 13:48 Pulse Ox 93 L 06/11/20 13:48 Intake & Output 06/10/20 06/11/20 06/11/20 18:59 06:59 18:59 Intake Total 700 300 Balance 700 300 Weight 111.266 kg Intake: Oral 700 300 Other: # Voids 1 2 - Exam No acute distress, oriented 3. Currently on nasal O2 at 3 L with a saturation 91%. No conversational dyspnea, or use of accessory muscles. HEENT examination is grossly unremarkable. Mucous membranes are moist. Neck supple. Full range of motion. No adenopathy thyromegaly or neck vein distention. Cardiovascular examination reveals regular rhythm rate. S1-S2 normal. No S3 or S4. No discernible murmur noted. Heart rate 86 bpm. Lungs reveal diffuse bilateral rhonchi. A few scattered bibasilar crackles are also noted. Breath sounds are equal bilaterally. No wheezes. Abdomen soft bowel sounds are heard. No masses or tenderness. Extremities are intact. No cyanosis clubbing or edema. Skin is without rash or lesion. Neurologic examination is brief but nonfocal. - Labs CBC & Chem 7: 06/11/20 11:31 06/11/20 11:31 Labs: Abnormal Lab Results - Last 24 Hours (Table) 06/11/20 06/11/20 Range/Units 11:31 11:31 WBC 11.3 H (3.8-10.6) k/uL Neutrophils # 10.0 H (1.3-7.7) k/uL Lymphocytes # 0.9 L (1.0-4.8) k/uL Sodium 133 L (137-145) mmol/L Potassium 3.4 L (3.5-5.1) mmol/L Chloride 97 L (98-107) mmol/L Glucose 193 H (74-99) mg/dL AST 51 H (14-36) U/L Lactate Dehydrogenase 881 H (313-618) U/L Assessment and Plan Assessment: Acute hypoxemic respiratory failure secondary to COVID 19 pneumonia. History of hypertension. History of lithotripsy. Plan: Plan dated 06/11/2020. Because the patient's symptoms began about 7 days ago, she will get a REM, as well as Decadron, zinc, vitamin C, vitamin D3, Lovenox, and Decadron. The patient is only minimally better today than she was yesterday. She remains on oxygen therapy at 3 L. Saturations are only 91%. She continues to have chest congestion, and she does cough with pain. We will continue to follow. No additional recommendations are made. Prognosis is guarded. She has received all appropriate medications. Time with Patient: Less than 30
--- NOTE | 2020-06-11 16:04 | P.PN ---
Subjective Progress Note Date: 06/11/20 Principal diagnosis: COVID pneumonia 44-year-old female, who presents to the emergency department, on June 10, complaining of shortness of breath, cough, chest congestion, fever, chills, muscle aches, and joint aches. She tested positive for COVID 19 on Friday. She has had symptoms for about 7 days. Her symptoms have gotten progressively worse. She denies any chest pain or pressure although she denies described pain in her chest when she coughs. She had slight nausea without vomiting. She was seen in the emergency room, and admitted with a diagnosis of COVID 19 pneumonia, and hypoxemic respiratory failure. Chest x-ray showed diffuse scattered infiltrates bilaterally, and computed tomography scan was negative for pulmonary embolism, but did show bilateral scattered groundglass opacities that are consistent with COVID 19. Currently, the patient's on 3 L nasal cannula. White count 9.6, hemoglobin 13.9, hematocrit 41.7, platelet count 202,000. PT INR and PTT all normal. D-dimer was 0.75. Sodium 133, potassium 4.1, chloride 97, CO2 22, anion gap 14, BUN 15, and creatinine 0.60. 06/11/2020. Patient is seen and admitted resting comfortably in bed and continues to complain of shortness of breath ;Currently, temperature 98.1. She's on 3 L of nasal oxygen, with saturation of 91%. Heart rate is 86, respiratory rate 20. Blood pressure is stable. She's feeling only marginally better today. Her chest x-ray showed diffuse bilateral infiltrates, and computed tomography scan showed no evidence of pulmonary embolism, but did show bilateral scattered groundglass opacities. White count 11.3, hemoglobin 13.6, hematocrit 41.5, platelet count 241,000. He time is 0.75. Sodium 133, potassium 3.4, chlorides 97, CO2 28, anion gap 8, BUN 16, creatinine 0.65. Objective - Vital Signs Vital signs: Vital Signs Temp 101.7 F H 06/11/20 10:13 Pulse 115 H 06/11/20 10:13 Resp 18 06/11/20 10:13 BP 135/83 06/11/20 10:13 Pulse Ox 91 L 06/11/20 10:13 Intake & Output 06/10/20 06/11/20 06/11/20 18:59 06:59 18:59 Intake Total 700 Balance 700 Weight 111.266 kg Intake: Oral 700 Other: # Voids 1 2 - Exam PHYSICAL EXAMINATION: GENERAL: The patient is alert and oriented x3, not in any acute distress. Well developed, well nourished. HEENT: Pupils are round and equally reacting to light. EOMI. No scleral icterus. No conjunctival pallor. Normocephalic, atraumatic. No pharyngeal erythema. No thyromegaly. CARDIOVASCULAR: S1 and S2 present. No murmurs, rubs, or gallops. PULMONARY: Chest is clear to auscultation, no wheezing or crackles. ABDOMEN: Soft, nontender, nondistended, normoactive bowel sounds. No palpable organomegaly. MUSCULOSKELETAL: No joint swelling or deformity. EXTREMITIES: No cyanosis, clubbing, or pedal edema. NEUROLOGICAL: Gross neurological examination did not reveal any focal deficits. SKIN: No rashes. - Labs CBC & Chem 7: 06/11/20 11:31 06/11/20 11:31 Assessment and Plan Assessment: 1. Acute hypoxemic respiratory failure - O2 per nasal cannula and titrated to keep SpO2 greater than 90-92% 2. Covid 19 viral pneumonia - patient's symptoms began about 7 days ago, she will get a REM, as well as Decadron, zinc, vitamin C, vitamin D3, Lovenox, and Decadron. We will continue to watch as patient very closely to see whether or not she responds to medications, or she deteriorates. Additional recommendations and suggestions are forthcoming. 3. Hypertension; losartan 50 mg by mouth daily 4. Transaminitis; possibly secondary to 2; we will continue to monitor liver enzymes with plans to order hepatic ultrasound if liver enzymes continue to trend up 5. Depression; Zoloft 100 mg by mouth daily at bedtime DVT prophylaxis; SCDs/subcu Lovenox CODE STATUS; full code
[2020-06-11] MEDS: SERTRALINE 100 MG TAB PO SCH (20:23)
[2020-06-11] MEDS: ACETAMINOPHEN TAB 325 MG TAB PO PRN (20:24)
--- NOTE | 2020-06-11 23:44 | PN ---
PROGRESS NOTE DATE OF SERVICE: 06/11/2020 REASON FOR FOLLOWUP: COVID-19 infection. INTERVAL HISTORY: Patient is currently afebrile. The patient is breathing comfortably. Patient denies having any chest pain, shortness of breath. Occasional cough. No nausea, vomiting, abdominal pain, no diarrhea. PHYSICAL EXAMINATION: Blood pressure 141/76, pulse of 80, temperature 98.1. She is 91% on 3 L nasal cannula. General description is a middle-aged female lying in bed in no distress. Respiratory system: Unlabored breathing, decreased intensity in breath sounds. No wheeze. Heart S1, S2. Regular rate and rhythm. ABDOMEN: Soft, no tenderness. LABS: Hemoglobin is 13.7, white count 11.3, creatinine 0.65. DIAGNOSTIC IMPRESSION AND PLAN: Patient with acute COVID-19 infection in this patient currently covered with Remdesivir, dexamethasone, Lovenox, zinc and ascorbic acid along with respiratory support and monitor clinical course closely. MMODL / IJN: [id number] /
[2020-06-12] MEDS: ENOXAPARIN 40 MG/0.4 ML SYRINGE SQ SCH (07:27)
[2020-06-12] MEDS: dexAMETHasone 2 MG TAB PO SCH (07:28)
[2020-06-12] MEDS: MULTIVITAMINS, THERA 1 EACH TAB PO SCH (07:28)
[2020-06-12] MEDS: CHOLECALCIFEROL 25 MCG (1000 IU) TABLET PO SCH (07:28)
[2020-06-12] MEDS: LOSARTAN 50 MG TAB PO SCH (07:28)
[2020-06-12] MEDS: ZINC SULFATE 220 MG CAP PO SCH (07:28)
[2020-06-12] MEDS: ASCORBIC ACID 500 MG TAB PO SCH (07:28)
[2020-06-12] MEDS: ACETAMINOPHEN TAB 325 MG TAB PO PRN ×2 (07:31→21:29)
[2020-06-12 10:38] LABS: Basophils # (A) 0.01 X 10*3/uL (0.00-0.10); Basophils % (A) 0.1 %; Eosinophils # (A) 0 X 10*3/uL (0.04-0.35); Eosinophils % (A) 0 %; HCT 41.1 % (37.2-46.3); HGB 13.3 g/dL (12.0-15.0); Lymphocytes # (A) 1.73 X 10*3/uL (0.90-5.00); Lymphocytes % (A) 17.1 %; MCH 30.6 pg (27.0-32.0); MCHC 32.4 g/dL (32.0-37.0); MCV 94.5 fL (80.0-97.0); Monocytes # (A) 0.76 X 10*3/uL (0.20-1.00); Monocytes % (A) 7.5 %; Neutrophils # (A) 7.43 X 10*3/uL (1.80-7.70); Neutrophils % (A) 73.4 %; Platelet Count 282 X 10*3/uL (140-440); RBC 4.35 X 10*6/uL (4.10-5.20); RDW 13.4 % (11.5-14.5); WBC 10.12 X 10*3/uL (4.50-10.00)
[2020-06-12] MEDS: REMDESIVIR 100 MG in SODIUM CHLORIDE 0.9% 250 ML IVPB SCH (11:22)
[2020-06-12 11:30] LABS: ALT 40 U/L (8-44); AST 45 U/L (13-35); African American GFR (CKD) 126.7 (60.0-200.0); Albumin/Globulin Ratio 1.68 (1.60-3.17); Alkaline Phosphatase 111 U/L (41-126); Bilirubin, Conjugated <0.20 mg/dL (0.20-0.40); Calcium 8.9 mg/dL (8.7-10.3); Carbon Dioxide 26.6 mmol/L (21.6-31.8); Chloride 102 mmol/L (96-109); Ferritin 1106.9 ng/mL (10.0-291.0); Globulin 2.2 g/dL (1.6-3.3); Glucose 183 mg/dL (70-110); LDH 407 U/L (120-246); Non-African American GFR(CKD) 109.3 (60.0-200.0); Potassium 4.1 mmol/L (3.5-5.5); Sodium 141 mmol/L (135-145); Total Bilirubin 0.3 mg/dL (0.2-1.2); Total Protein 5.9 g/dL (6.2-8.2)
--- NOTE | 2020-06-12 14:05 | P.PN ---
Subjective Progress Note Date: 06/12/20 44-year-old female, who presents to the emergency department, on June 10, complaining of shortness of breath, cough, chest congestion, fever, chills, muscle aches, and joint aches. She tested positive for COVID 19 on Friday. She has had symptoms for about 7 days. Her symptoms have gotten progressively worse. She denies any chest pain or pressure although she denies described pain in her chest when she coughs. She had slight nausea without vomiting. She was seen in the emergency room, and admitted with a diagnosis of COVID 19 pneumonia, and hypoxemic respiratory failure. Chest x-ray showed diffuse scattered infiltrates bilaterally, and computed tomography scan was negative for pulmonary embolism, but did show bilateral scattered groundglass opacities that are consistent with COVID 19. Currently, the patient's on 3 L nasal cannula. White count 9.6, hemoglobin 13.9, hematocrit 41.7, platelet count 202,000. PT INR and PTT all normal. D-dimer was 0.75. Sodium 133, potassium 4.1, chloride 97, CO2 22, anion gap 14, BUN 15, and creatinine 0.60. Progress note dated 06/11/2020. 44-year-old female who presented to the emergency department on June 10, complaining of shortness of breath, cough, chest congestion, fever, chills, muscle and joint aches. She tested positive for COVID 19 on Friday. Currently, temperature 98.1. She's on 3 L of nasal oxygen, with saturation of 91%. Heart rate is 86, respiratory rate 20. Blood pressure is stable. She's feeling only marginally better today. Her chest x-ray showed diffuse bilateral infiltrates, and computed tomography scan showed no evidence of pulmonary embolism, but did show bilateral scattered groundglass opacities. White count 11.3, hemoglobin 13.6, hematocrit 41.5, platelet count 241,000. He time is 0.75. Sodium 133, potassium 3.4, chlorides 97, CO2 28, anion gap 8, BUN 16, creatinine 0.65. On 06/12/2020, the patient feels that she is having a better day today. She is still on the same treatment and she is completing the course of REM in addition to Decadron. The patient is still having crackles in lung bases bilaterally. No fever. No chills. The LDH level was 407 which is lower. The ferritin level was 1106 and a CRP level has not been measured today. D-dimer level has been 0.75. As for the patient's chest x-ray, she had diffuse bilateral pulmonary infiltrates on examination she still having crackles in the lungs bilaterally. She is currently on 4 L of oxygen by nasal cannula. Her infiltrates are perihilar more so in the left compared to right although there is some infiltration the periphery of the right upper lobe area. Objective - Vital Signs Vital signs: Vital Signs Temp 98.6 F 06/12/20 09:54 Pulse 86 06/12/20 09:54 Resp 18 06/12/20 09:54 BP 156/91 06/12/20 09:54 Pulse Ox 93 L 06/12/20 09:54 Intake & Output 06/11/20 06/12/20 06/12/20 18:59 06:59 18:59 Intake Total 600 Balance 600 Intake: Oral 600 Other: # Voids 4 2 - Exam No acute distress, oriented 3. Currently on nasal O2 at4 L with a saturation 91%. No conversational dyspnea, or use of accessory muscles. HEENT examination is grossly unremarkable. Mucous membranes are moist. Neck supple. Full range of motion. No adenopathy thyromegaly or neck vein distention. Cardiovascular examination reveals regular rhythm rate. S1-S2 normal. No S3 or S4. No discernible murmur noted. Lungs reveal diffuse bilateral rhonchi. A few scattered bibasilar crackles are also noted. Breath sounds are equal bilaterally. No wheezes. Abdomen soft bowel sounds are heard. No masses or tenderness. Extremities are intact. No cyanosis clubbing or edema. Skin is without rash or lesion. Neurologic examination is brief but nonfocal. - Labs CBC & Chem 7: 06/12/20 06:55 06/12/20 06:55 Labs: Abnormal Lab Results - Last 24 Hours (Table) 06/11/20 06/12/20 06/12/20 Range/Units 11:31 06:55 06:55 WBC 10.12 H (4.50-10.00) X 10*3/uL Immature Gran # 0.19 H (0.00-0.04) X 10*3/uL Eosinophils # 0 L (0.04-0.35) X 10*3/uL Anion Gap 12.40 H (4.00-12.00) mmol/L BUN/Creatinine Ratio 35.00 H (12.00-20.00) Ratio Glucose 183 H (70-110) mg/dL Ferritin 1132.0 H 1106.9 H (10.0-291.0) ng/mL Conjugated Bilirubin <0.20 L (0.20-0.40) mg/dL AST 45 H (13-35) U/L Lactate Dehydrogenase 407 H (120-246) U/L Total Protein 5.9 L (6.2-8.2) g/dL Albumin 3.70 L (3.80-4.90) g/dL Assessment and Plan Plan: 1 Acute hypoxemic respiratory failure secondary to COVID 19 pneumonia. The patient was treated with a combination of Decadron, zinc, vitamin C and vitamin D 3 and the patient is also on REM. She is still on 4 L of oxygen by nasal cannula. 2 History of hypertension. 3 History of lithotripsy. Plan She will be continued on REM and she is currently on day #3, as well as Decadron, zinc, vitamin C, vitamin D3, Lovenox, and Decadron. T She remains on oxygen therapy at 4 L. Saturations are only 91%. She continues to have chest congestion, and she does cough with pain. We will continue to follow. No additional recommendations are made. I am suggesting repeating inflammatory markers for tomorrow. Continue Lovenox 40 mg subcu daily. Keep the patient on 4 L of oxygen by nasal cannula. Provide an incentive spirometer. Prognosis is guarded. She has received all appropriate medications.
[2020-06-12] MEDS: SERTRALINE 100 MG TAB PO SCH (20:06)
--- NOTE | 2020-06-13 00:34 | P.PN ---
Subjective Progress Note Date: 06/12/20 Principal diagnosis: Acute hypoxic respiratory failure secondary to Covid 19 pneumonia 44-year-old female, who presents to the emergency department, on June 10, complaining of shortness of breath, cough, chest congestion, fever, chills, muscle aches, and joint aches. She tested positive for COVID 19 on Friday. She has had symptoms for about 7 days. Her symptoms have gotten progressively worse. She denies any chest pain or pressure although she denies described pain in her chest when she coughs. She had slight nausea without vomiting. She was seen in the emergency room, and admitted with a diagnosis of COVID 19 pneumonia, and hypoxemic respiratory failure. Chest x-ray showed diffuse scattered infiltrates bilaterally, and computed tomography scan was negative for pulmonary embolism, but did show bilateral scattered groundglass opacities that are consistent with COVID 19. Currently, the patient's on 3 L nasal cannula. White count 9.6, hemoglobin 13.9, hematocrit 41.7, platelet count 202,000. PT INR and PTT all normal. D-dimer was 0.75. Sodium 133, potassium 4.1, chloride 97, CO2 22, anion gap 14, BUN 15, and creatinine 0.60. 06/11/2020. Patient is seen and admitted resting comfortably in bed and continues to complain of shortness of breath ;Currently, temperature 98.1. She's on 3 L of nasal oxygen, with saturation of 91%. Heart rate is 86, respiratory rate 20. Blood pressure is stable. She's feeling only marginally better today. Her chest x-ray showed diffuse bilateral infiltrates, and computed tomography scan showed no evidence of pulmonary embolism, but did show bilateral scattered groundglass opacities. White count 11.3, hemoglobin 13.6, hematocrit 41.5, platelet count 241,000. He time is 0.75. Sodium 133, potassium 3.4, chlorides 97, CO2 28, anion gap 8, BUN 16, creatinine 0.65. 06/12/2020 Patient is currently lying in the bed and is still complaining of shortness of breath. Patient was complaining of chest tightness when she was walking to the bathroom. Still requiring oxygen at 4 L via nasal cannula. Patient is being continued on remdesivir day 3 along with dexamethasone, Lovenox and multivitamins. Elevated inflammatory markers. Chest x-ray showed diffuse bilateral pulmonary infiltrates on examination. Patient has been afebrile. No complaints of nausea vomiting or abdominal pain or diarrhea. Tolerating oral diet. Pulmonary is on board. Current medications reviewed. Objective - Vital Signs Vital signs: Vital Signs Temp 98.6 F 06/12/20 14:00 Pulse 85 06/12/20 14:00 Resp 18 06/12/20 14:00 BP 139/76 06/12/20 14:00 Pulse Ox 92 L 06/12/20 14:00 Intake & Output 06/11/20 06/12/20 06/12/20 18:59 06:59 18:59 Intake Total 600 Balance 600 Intake: Oral 600 Other: # Voids 4 2 - Exam PHYSICAL EXAMINATION: GENERAL: The patient is alert and oriented x3, not in any acute distress. Well developed, well nourished. HEENT: Pupils are round and equally reacting to light. EOMI. No scleral icterus. No conjunctival pallor. Normocephalic, atraumatic. No pharyngeal erythema. No thyromegaly. CARDIOVASCULAR: S1 and S2 present. No murmurs, rubs, or gallops. PULMONARY: Bibasilar crackles. No wheezing. Nonlabored breathing at rest.. ABDOMEN: Soft, nontender, nondistended, normoactive bowel sounds. No palpable organomegaly. MUSCULOSKELETAL: No joint swelling or deformity. EXTREMITIES: No cyanosis, clubbing, or pedal edema. NEUROLOGICAL: Gross neurological examination did not reveal any focal deficits. SKIN: No rashes. - Labs CBC & Chem 7: 06/12/20 06:55 06/12/20 06:55 Labs: Abnormal Lab Results - Last 24 Hours (Table) 06/11/20 06/12/20 06/12/20 Range/Units 11:31 06:55 06:55 WBC 10.12 H (4.50-10.00) X 10*3/uL Immature Gran # 0.19 H (0.00-0.04) X 10*3/uL Eosinophils # 0 L (0.04-0.35) X 10*3/uL Anion Gap 12.40 H (4.00-12.00) mmol/L BUN/Creatinine Ratio 35.00 H (12.00-20.00) Ratio Glucose 183 H (70-110) mg/dL Ferritin 1132.0 H 1106.9 H (10.0-291.0) ng/mL Conjugated Bilirubin <0.20 L (0.20-0.40) mg/dL AST 45 H (13-35) U/L Lactate Dehydrogenase 407 H (120-246) U/L Total Protein 5.9 L (6.2-8.2) g/dL Albumin 3.70 L (3.80-4.90) g/dL Assessment and Plan Assessment: 1. Acute hypoxemic respiratory failure - O2 per nasal cannula and titrated to keep SpO2 greater than 90-92%. Currently on 4 L oxygen via nasal cannula. 2. Covid 19 viral pneumonia - patient's symptoms began about 7 days ago,Continue with remdesivir day 3 as well as Decadron, zinc, vitamin C, vitamin D3, Lovenox. -Titrate down oxygen as tolerated. 3. Hypertension; losartan 50 mg by mouth daily 4. Transaminitis; possibly secondary to 2; we will continue to monitor liver enzymes with plans to order hepatic ultrasound if liver enzymes continue to t rend up. improving. 5. Depression; Zoloft 100 mg by mouth daily at bedtime DVT prophylaxis; SCDs/subcu Lovenox CODE STATUS; full code Time with Patient: Greater than 30
--- NOTE | 2020-06-13 01:09 | PN ---
PROGRESS NOTE DATE OF SERVICE: 06/12/2020. REASON FOR FOLLOWUP VISIT: Covid 19 pneumonia. INTERVAL HISTORY: The patient is currently afebrile. The patient is breathing slightly comfortably. Denies having any chest pain. Did have a cough, not bringing up sputum. No abdominal pain. No diarrhea. PHYSICAL EXAMINATION: Blood pressure 144/80 with a pulse of 83, temperature 98.7. She is 92% on 4 L nasal cannula. General description is a middle-aged female lying in bed in no distress. Respiratory system: Unlabored breathing, decreased intensity in breath sounds in the base, with no wheeze. Heart S1, S2. Regular rate and rhythm. Abdomen soft, no tenderness. LABS: Hemoglobin 13.1, white count 10.1, BUN of 21, creatinine 0.6. DIAGNOSTIC IMPRESSION AND PLAN: Patient with acute COVID-19 infection in this patient currently covered with Remdesivir, dexamethasone, Lovenox, zinc and ascorbic acid along with respiratory support and monitor clinical course closely. MMODL / IJN: [id number] /
[2020-06-13] MEDS: ZINC SULFATE 220 MG CAP PO SCH (07:55)
[2020-06-13] MEDS: LOSARTAN 50 MG TAB PO SCH (07:55)
[2020-06-13] MEDS: ASCORBIC ACID 500 MG TAB PO SCH (07:55)
[2020-06-13] MEDS: ENOXAPARIN 40 MG/0.4 ML SYRINGE SQ SCH (07:55)
[2020-06-13] MEDS: CHOLECALCIFEROL 25 MCG (1000 IU) TABLET PO SCH (07:55)
[2020-06-13] MEDS: dexAMETHasone 2 MG TAB PO SCH (07:55)
[2020-06-13] MEDS: MULTIVITAMINS, THERA 1 EACH TAB PO SCH (07:55)
--- NOTE | 2020-06-13 08:24 | XR ---
EXAMINATION TYPE: XR chest 1V portable DATE OF EXAM: 06/13/2020 COMPARISON: 06/10/2020 HISTORY: Shortness of breath TECHNIQUE: Single frontal view of the chest is obtained. FINDINGS: There are bilateral patchy areas of infiltrate which are stable. Heart size normal. No ple ural effusion or pneumothorax IMPRESSION: Stable bilateral patchy infiltrates.
[2020-06-13] MEDS: REMDESIVIR 100 MG in SODIUM CHLORIDE 0.9% 250 ML IVPB SCH (11:34)
--- NOTE | 2020-06-13 13:57 | P.PN ---
Subjective Progress Note Date: 06/13/20 44-year-old female, who presents to the emergency department, on June 10, complaining of shortness of breath, cough, chest congestion, fever, chills, muscle aches, and joint aches. She tested positive for COVID 19 on Friday. She has had symptoms for about 7 days. Her symptoms have gotten progressively worse. She denies any chest pain or pressure although she denies described pain in her chest when she coughs. She had slight nausea without vomiting. She was seen in the emergency room, and admitted with a diagnosis of COVID 19 pneumonia, and hypoxemic respiratory failure. Chest x-ray showed diffuse scattered infiltrates bilaterally, and computed tomography scan was negative for pulmonary embolism, but did show bilateral scattered groundglass opacities that are consistent with COVID 19. Currently, the patient's on 3 L nasal cannula. White count 9.6, hemoglobin 13.9, hematocrit 41.7, platelet count 202,000. PT INR and PTT all normal. D-dimer was 0.75. Sodium 133, potassium 4.1, chloride 97, CO2 22, anion gap 14, BUN 15, and creatinine 0.60. Progress note dated 06/11/2020. 44-year-old female who presented to the emergency department on June 10, complaining of shortness of breath, cough, chest congestion, fever, chills, muscle and joint aches. She tested positive for COVID 19 on Friday. Currently, temperature 98.1. She's on 3 L of nasal oxygen, with saturation of 91%. Heart rate is 86, respiratory rate 20. Blood pressure is stable. She's feeling only marginally better today. Her chest x-ray showed diffuse bilateral infiltrates, and computed tomography scan showed no evidence of pulmonary embolism, but did show bilateral scattered groundglass opacities. White count 11.3, hemoglobin 13.6, hematocrit 41.5, platelet count 241,000. He time is 0.75. Sodium 133, potassium 3.4, chlorides 97, CO2 28, anion gap 8, BUN 16, creatinine 0.65. On 06/12/2020, the patient feels that she is having a better day today. She is still on the same treatment and she is completing the course of REM in addition to Decadron. The patient is still having crackles in lung bases bilaterally. No fever. No chills. The LDH level was 407 which is lower. The ferritin level was 1106 and a CRP level has not been measured today. D-dimer level has been 0.75. As for the patient's chest x-ray, she had diffuse bilateral pulmonary infiltrates on examination she still having crackles in the lungs bilaterally. She is currently on 4 L of oxygen by nasal cannula. Her infiltrates are perihilar more so in the left compared to right although there is some infiltration the periphery of the right upper lobe area. On today's evaluation of 06/13/2012 on the patient remains on 4 L about 2 by nasal cannula with a pulse of 72%. Essentially same as yesterday. She is on Decadron. She is on REM and she is on day #4. In terms of her oxygenation, findings have been essentially stable on 4 L of oxygen by nasal cannula without any significant improvement. The chest x-ray from today showed bilateral perihilar pulmonary infiltrates mainly in the left perihilar and right upper lobe area. The findings on the left are probably worse. The right lung seems to be better aerated for now. He had a oxygenation remains essentially stable for now. Blood work from they still pending. She is afebrile. No nausea or vomiting or diarrhea or abdominal pain. She is coughing. Objective - Vital Signs Vital signs: Vital Signs Temp 98.2 F 06/13/20 09:34 Pulse 68 06/13/20 09:34 Resp 18 06/13/20 09:34 BP 152/82 06/13/20 09:34 Pulse Ox 92 L 06/13/20 09:34 Intake & Output 06/12/20 06/13/20 06/13/20 18:59 06:59 18:59 Other: Voiding Method Toilet # Voids 3 2 # Bowel Movements 1 - Exam No acute distress, oriented 3. Currently on nasal O2 at4 L with a saturation 91%. No conversational dyspnea, or use of accessory muscles. HEENT examination is grossly unremarkable. Mucous membranes are moist. Neck supple. Full range of motion. No adenopathy thyromegaly or neck vein distention. Cardiovascular examination reveals regular rhythm rate. S1-S2 normal. No S3 or S4. No discernible murmur noted. Lungs reveal diffuse bilateral rhonchi. A few scattered bibasilar crackles are also noted. Breath sounds are equal bilaterally. No wheezes. Abdomen soft bowel sounds are heard. No masses or tenderness. Extremities are intact. No cyanosis clubbing or edema. Skin is without rash or lesion. Neurologic examination is brief but nonfocal. - Labs CBC & Chem 7: 06/12/20 06:55 06/12/20 06:55 Labs: Abnormal Lab Results - Last 24 Hours (Table) 06/13/20 Range/Units 06:57 D-Dimer 1.08 H (<0.60) mg/L FEU Assessment and Plan Plan: 1 Acute hypoxemic respiratory failure secondary to COVID 19 pneumonia. The patient was treated with a combination of Decadron, zinc, vitamin C and vitamin D 3 and the patient is also on REM. She is still on 4 L of oxygen by nasal cannula. 2 History of hypertension. 3 History of lithotripsy. Plan She will be continued on REM and she is currently on day #4, as well as Decadron, zinc, vitamin C, vitamin D3, Lovenox, and Decadron. She remains on oxygen therapy at 4 L. Saturations are only 91%. Lovenox 40 mg subcu for DVT prophylaxis. Monitor. Monitor markers of the chest x-ray every 48 hours Lungs are irregular crackling and chest x-ray is probably slightly worse on the left. will continue to follow the patient's progress.
[2020-06-13 16:34] LABS: C Reactive Protein 5.6 mg/dL (0.0-0.8)
[2020-06-13] MEDS: SERTRALINE 100 MG TAB PO SCH (20:16)
--- NOTE | 2020-06-14 01:30 | PN ---
PROGRESS NOTE DATE OF SERVICE: 06/13/2020 REASON FOR FOLLOWUP: COVID-19 infection. INTERVAL HISTORY: Patient is currently afebrile. The patient has been breathing slightly comfortably. The patient continues to have a dry hacking cough. Not bringing up any sputum. No chest pain. No nausea, vomiting, abdominal pain or diarrhea. PHYSICAL EXAMINATION: Blood pressure is 157/84 with a pulse of 73, temperature 98.2. She is 92% on 4 L nasal cannula. General description is a middle-aged female up in the bed in no distress. Respiratory system: Unlabored breathing, decreased intensity of breath sounds. No wheeze. HEART: S1, S2. Regular rate and rhythm. ABDOMEN: Soft, no tenderness. LABS: Hemoglobin 13.1, white count 10.12. D-dimer slightly elevated 1.08 and LDH 429. CRP is down to 5.6. DIAGNOSTIC IMPRESSION AND PLAN: Patient with acute COVID-19 pneumonia in this patient currently covered with Remdesivir, dexamethasone, Lovenox and zinc to continue while monitoring clinical course closely. Continue supportive care. MMODL / IJN: [id number] /
[2020-06-14] MEDS: ENOXAPARIN 40 MG/0.4 ML SYRINGE SQ SCH (07:34)
[2020-06-14] MEDS: CHOLECALCIFEROL 25 MCG (1000 IU) TABLET PO SCH (07:35)
[2020-06-14] MEDS: LOSARTAN 50 MG TAB PO SCH (07:35)
[2020-06-14] MEDS: dexAMETHasone 2 MG TAB PO SCH (07:35)
[2020-06-14] MEDS: MULTIVITAMINS, THERA 1 EACH TAB PO SCH (07:35)
[2020-06-14] MEDS: ZINC SULFATE 220 MG CAP PO SCH (07:35)
[2020-06-14] MEDS: ASCORBIC ACID 500 MG TAB PO SCH (07:35)
--- NOTE | 2020-06-14 08:30 | XR ---
EXAMINATION TYPE: XR chest 1V portable DATE OF EXAM: 06/14/2020 COMPARISON: 06/13/2020 HISTORY: Covid pneumonia TECHNIQUE: Single frontal view of the chest is obtained. FINDINGS: Persistent patchy perihilar and basilar infiltrates. Continued follow-up advised. The cardiac silhouette size is within normal limits. The osseous structures are intact. IMPRESSION: 1. Persistent patchy perihilar and basilar infiltrates. Continued follow-up advised.
[2020-06-14] MEDS: REMDESIVIR 100 MG in SODIUM CHLORIDE 0.9% 250 ML IVPB SCH (11:21)
--- NOTE | 2020-06-14 16:20 | P.PN ---
Subjective Progress Note Date: 06/14/20 Principal diagnosis: COVID 19 pneumonia 44-year-old female, who presents to the emergency department, on June 10, complaining of shortness of breath, cough, chest congestion, fever, chills, muscle aches, and joint aches. She tested positive for COVID 19 on Friday. She has had symptoms for about 7 days. Her symptoms have gotten progressively worse. She denies any chest pain or pressure although she denies described pain in her chest when she coughs. She had slight nausea without vomiting. She was seen in the emergency room, and admitted with a diagnosis of COVID 19 pneumonia, and hypoxemic respiratory failure. Chest x-ray showed diffuse scattered infiltrates bilaterally, and computed tomography scan was negative for pulmonary embolism, but did show bilateral scattered groundglass opacities that are consistent with COVID 19. Currently, the patient's on 3 L nasal cannula. White count 9.6, hemoglobin 13.9, hematocrit 41.7, platelet count 202,000. PT INR and PTT all normal. D-dimer was 0.75. Sodium 133, potassium 4.1, chloride 97, CO2 22, anion gap 14, BUN 15, and creatinine 0.60. Progress note dated 06/11/2020. 44-year-old female who presented to the emergency department on June 10, complaining of shortness of breath, cough, chest congestion, fever, chills, muscle and joint aches. She tested positive for COVID 19 on Friday. Currently, temperature 98.1. She's on 3 L of nasal oxygen, with saturation of 91%. Heart rate is 86, respiratory rate 20. Blood pressure is stable. She's feeling only marginally better today. Her chest x-ray showed diffuse bilateral infiltrates, and computed tomography scan showed no evidence of pulmonary e mbolism, but did show bilateral scattered groundglass opacities. White count 11.3, hemoglobin 13.6, hematocrit 41.5, platelet count 241,000. He time is 0.75. Sodium 133, potassium 3.4, chlorides 97, CO2 28, anion gap 8, BUN 16, creatinine 0.65. On 06/12/2020, the patient feels that she is having a better day today. She is still on the same treatment and she is completing the course of REM in addition to Decadron. The patient is still having crackles in lung bases bilaterally. No fever. No chills. The LDH level was 407 which is lower. The ferritin level was 1106 and a CRP level has not been measured today. D-dimer level has been 0.75. As for the patient's chest x-ray, she had diffuse bilateral pulmonary infiltrates on examination she still having crackles in the lungs bilaterally. She is currently on 4 L of oxygen by nasal cannula. Her infiltrates are perihilar more so in the left compared to right although there is some infiltration the periphery of the right upper lobe area. On today's evaluation of 06/13/2012 on the patient remains on 4 L about 2 by nasal cannula with a pulse of 72%. Essentially same as yesterday. She is on Decadron. She is on REM and she is on day #4. In terms of her oxygenation, findings have been essentially stable on 4 L of oxygen by nasal cannula without any significant improvement. The chest x-ray from today showed bilateral perihilar pulmonary infiltrates mainly in the left perihilar and right upper lobe area. The findings on the left are probably worse. The right lung seems to be better aerated for now. He had a oxygenation remains essentially stable for now. Blood work from they still pending. She is afebrile. No nausea or vomiting or diarrhea or abdominal pain. She is coughing. On 06/14/2020 patient seen in follow-up on medical surgical floor. Patient is awake and alert, no acute distress, she is on 4 L of oxygen, her pulse ox is 92%. She is afebrile, hemodynamically she is stable. Today's chest x-ray shows persistent patchy perihilar and basilar infiltrates. Today's labs have been reviewed, showing d-dimer uptrending slightly, and up to 1.79 on today's labs, LDH of 429, and CRP of 5.6, and inflammatory markers are overall improving since admission. Patient completed her Remdesivir treatment today. She is breathing more comfortably overall, she still has coughing spells at times, she has had no nausea vomiting or diarrhea, no abdominal pain, she is tolerating oral diet. Objective - Vital Signs Vital signs: Vital Signs Temp 98.1 F 06/14/20 14:57 Pulse 78 06/14/20 14:57 Resp 15 06/14/20 14:57 BP 162/92 06/14/20 14:57 Pulse Ox 89 L 06/14/20 14:57 Intake & Output 06/13/20 06/14/20 06/14/20 18:59 06:59 18:59 Other: Voiding Method Toilet # Voids 3 2 1 - Exam GENERAL EXAM: Alert, very pleasant 44-year-old white female, on 4 L of oxygen with a pulse ox of 92% comfortable in no apparent distress. HEAD: Normocephalic/atraumatic. EYES: Normal reaction of pupils, equal size. Conjunctiva pink, sclera white. NOSE: Clear with pink turbinates. THROAT: No erythema or exudates. NECK: No masses, no JVD, no thyroid enlargement, no adenopathy. CHEST: No chest wall deformity. Symmetrical expansion. LUNGS: Equal air entry with diffuse bilateral crackles CVS: Regular rate and rhythm, normal S1 and S2, no gallops, no murmurs, no rubs ABDOMEN: Soft, nontender. No hepatosplenomegaly, normal bowel sounds, no guarding or rigidity. EXTREMITIES: No clubbing, no edema, no cyanosis, 2+ pulses and upper and lower extremities. MUSCULOSKELETAL: Muscle strength and tone normal. SPINE: No scoliosis or deformity SKIN: No rashes CENTRAL NERVOUS SYSTEM: Alert and oriented -3. No focal deficits, tone is normal in all 4 extremities. PSYCHIATRIC: Alert and oriented -3. Appropriate affect. Intact judgment and insight. - Labs CBC & Chem 7: 06/12/20 06:55 06/12/20 06:55 Labs: Abnormal Lab Results - Last 24 Hours (Table) 06/13/20 06/14/20 Range/Units 06:57 05:36 D-Dimer 1.79 H (<0.60) mg/L FEU C-Reactive Protein 5.6 H (0.0-0.8) mg/dL Assessment and Plan Plan: Assessment: 1 Acute hypoxemic respiratory failure secondary to COVID 19 pneumonia. The patient was treated with a combination of Decadron, zinc, vitamin C and vitamin D 3 and the patient is also on REM. She is still on 4 L of oxygen by nasal cannula. 2 History of hypertension. 3 History of lithotripsy. Plan: Continue same dose Decadron, vitamins, patient has completed her Remdesivir treatment, continue same dose Lovenox, today's labs have been noted, overall inflammatory markers are improving, she still requiring supplemental oxygen at 4 L, in her oxygenation has been marginal, but overall she is breathing a little better, we'll continue to follow her clinical course. I performed a history & physical examination of the patient and discussed their management with my nurse practitioner, Dayami Blunt. I reviewed the nurse practitioner's note and agree with the documented findings and plan of care. Lung sounds are positive for diminished breath sounds with diffuse crackles. The findings and the impression was discussed with the patient. I attest to the documentation by the nurse practitioner. Time with Patient: Less than 30
[2020-06-14] MEDS: SERTRALINE 100 MG TAB PO SCH (21:22)
--- NOTE | 2020-06-15 01:16 | PN ---
PROGRESS NOTE DATE OF SERVICE: 06/14/2020 REASON FOR FOLLOWUP: COVID-19 pneumonia. INTERVAL HISTORY: Patient is currently afebrile. The patient is feeling slightly better today. She is breathing comfortably. Denies having any chest pain. She did have a cough, not bringing up any sputum. No nausea, no vomiting. No abdominal pain. No diarrhea. PHYSICAL EXAMINATION: Blood pressure 152/81 with a pulse of 67, temperature 98.2. She is 93% on 4 L nasal cannula. General description is a middle-aged female lying in bed in no distress. Respiratory system: Unlabored breathing, decreased intensity of breath sounds. No wheeze. HEART: S1, S2. Regular rate and rhythm. ABDOMEN: Soft, no tenderness. LABS: D. dimer 1.79. DIAGNOSTIC IMPRESSION AND PLAN: Patient with acute COVID-19 pneumonia in this patient who completed her Remdesivir, currently on Dexamethasone, Lovenox, zinc and ascorbic acid to continue along with respiratory support and monitor clinical course closely. MMODL / IJN: [id number] /
[2020-06-15 08:31] LABS: Basophils % (A) 0 %; Eosinophils % (A) 0 %; HCT 40.1 % (34.0-46.0); Lymphocytes # (A) 2.5 k/uL (1.0-4.8); Lymphocytes % (A) 24 %; MCH 29.8 pg (25.0-35.0); MCHC 32.5 g/dL (31.0-37.0); MCV 91.5 fL (80.0-100.0); Mean Platelet Volume 7.1; Monocytes # (A) 0.6 k/uL (0-1.0); Monocytes % (A) 6 %; Neutrophils # (A) 7.1 k/uL (1.3-7.7); Neutrophils % (A) 67 %; Platelet Count 349 k/uL (150-450); RBC 4.38 m/uL (3.80-5.40); RDW 13.5 % (11.5-15.5); WBC 10.5 k/uL (3.8-10.6)
[2020-06-15 08:38] LABS: African American GFR (CKD) >90 (>60 ml/min/1.73 sqM); Anion Gap 8 mmol/L; Blood Urea Nitrogen 20 mg/dL (7-17); Calcium 8.4 mg/dL (8.4-10.2); Carbon Dioxide 30 mmol/L (22-30); Chloride 101 mmol/L (98-107); Glucose 134 mg/dL (74-99); Non-African American GFR(CKD) >90 (>60 ml/min/1.73 sqM); Potassium 3.7 mmol/L (3.5-5.1); Sodium 139 mmol/L (137-145)
[2020-06-15] MEDS: ZINC SULFATE 220 MG CAP PO SCH (08:45)
[2020-06-15] MEDS: CHOLECALCIFEROL 25 MCG (1000 IU) TABLET PO SCH (08:45)
[2020-06-15] MEDS: dexAMETHasone 2 MG TAB PO SCH (08:45)
[2020-06-15] MEDS: MULTIVITAMINS, THERA 1 EACH TAB PO SCH (08:45)
[2020-06-15] MEDS: ASCORBIC ACID 500 MG TAB PO SCH (08:45)
[2020-06-15] MEDS: LOSARTAN 50 MG TAB PO SCH (08:45)
[2020-06-15] MEDS: ENOXAPARIN 40 MG/0.4 ML SYRINGE SQ SCH (08:46)
--- NOTE | 2020-06-15 15:26 | P.PN ---
Subjective Progress Note Date: 06/15/20 44-year-old female, who presents to the emergency department, on June 10, complaining of shortness of breath, cough, chest congestion, fever, chills, muscle aches, and joint aches. She tested positive for COVID 19 on Friday. She has had symptoms for about 7 days. Her symptoms have gotten progressively worse. She denies any chest pain or pressure although she denies described pain in her chest when she coughs. She had slight nausea without vomiting. She was seen in the emergency room, and admitted with a diagnosis of COVID 19 pneumonia, and hypoxemic respiratory failure. Chest x-ray showed diffuse scattered infiltrates bilaterally, and computed tomography scan was negative for pulmonary embolism, but did show bilateral scattered groundglass opacities that are consistent with COVID 19. Currently, the patient's on 3 L nasal cannula. White count 9.6, hemoglobin 13.9, hematocrit 41.7, platelet count 202,000. PT INR and PTT all normal. D-dimer was 0.75. Sodium 133, potassium 4.1, chloride 97, CO2 22, anion gap 14, BUN 15, and creatinine 0.60. Progress note dated 06/11/2020. 44-year-old female who presented to the emergency department on June 10, complaining of shortness of breath, cough, chest congestion, fever, chills, muscle and joint aches. She tested positive for COVID 19 on Friday. Currently, temperature 98.1. She's on 3 L of nasal oxygen, with saturation of 91%. Heart rate is 86, respiratory rate 20. Blood pressure is stable. She's feeling only marginally better today. Her chest x-ray showed diffuse bilateral infiltrates, and computed tomography scan showed no evidence of pulmonary embolism, but did show bilateral scattered groundglass opacities. White count 11.3, hemoglobin 13.6, hematocrit 41.5, platelet count 241,000. He time is 0.75. Sodium 133, potassium 3.4, chlorides 97, CO2 28, anion gap 8, BUN 16, creatinine 0.65. On 06/12/2020, the patient feels that she is having a better day today. She is still on the same treatment and she is completing the course of REM in addition to Decadron. The patient is still having crackles in lung bases bilaterally. No fever. No chills. The LDH level was 407 which is lower. The ferritin level was 1106 and a CRP level has not been measured today. D-dimer level has been 0.75. As for the patient's chest x-ray, she had diffuse bilateral pulmonary infiltrates on examination she still having crackles in the lungs bilaterally. She is currently on 4 L of oxygen by nasal cannula. Her infiltrates are perihilar more so in the left compared to right although there is some infiltration the periphery of the right upper lobe area. On today's evaluation of 06/13/2012 on the patient remains on 4 L about 2 by nasal cannula with a pulse of 72%. Essentially same as yesterday. She is on Decadron. She is on REM and she is on day #4. In terms of her oxygenation, findings have been essentially stable on 4 L of oxygen by nasal cannula without any significant improvement. The chest x-ray from today showed bilateral perihilar pulmonary infiltrates mainly in the left perihilar and right upper lobe area. The findings on the left are probably worse. The right lung seems to be better aerated for now. He had a oxygenation remains essentially stable for now. Blood work from they still pending. She is afebrile. No nausea or vomiting or diarrhea or abdominal pain. She is coughing. On 06/14/2020 patient seen in follow-up on medical surgical floor. Patient is awake and alert, no acute distress, she is on 4 L of oxygen, her pulse ox is 92%. She is afebrile, hemodynamically she is stable. Today's chest x-ray shows persistent patchy perihilar and basilar infiltrates. Today's labs have been reviewed, showing d-dimer uptrending slightly, and up to 1.79 on today's labs, LDH of 429, and CRP of 5.6, and inflammatory markers are overall improving since admission. Patient completed her Remdesivir treatment today. She is breathing more comfortably overall, she still has coughing spells at times, she has had no nausea vomiting or diarrhea, no abdominal pain, she is tolerating oral diet. 06/15/2020 and seeing the patient for a follow-up. On today's evaluation, the patient is quite comfortable on 4 L of oxygen by nasal cannula. He is already feeling better. With deep inhalation, the patient continues to cough. She is using incentive spirometer. No fever. No chills. No night sweats. No headaches. No altered mentation. She completed REM treatment and she also is on steroids. She remains on Lovenox for DVT prophylaxis. No new complaints otherwise for now. D-dimer is down to 1.79. Chest x-ray from yesterday was showing persistent bilateral pulmonary infiltrates and on examination she continues to have some crackers in lower lungs bilaterally. Objective - Vital Signs Vital signs: Vital Signs Temp 97.7 F 06/15/20 14:23 Pulse 62 06/15/20 05:56 Resp 18 06/15/20 14:23 BP 161/99 06/15/20 14:23 Pulse Ox 90 L 06/15/20 14:23 Intake & Output 06/14/20 06/15/20 06/15/20 18:59 06:59 18:59 Other: Voiding Method Toilet # Voids 1 0 - Exam No acute distress, oriented 3. Currently on nasal O2 at4 L with a saturation 91%. No conversational dyspnea, or use of accessory muscles. HEENT examination is grossly unremarkable. Mucous membranes are moist. Neck supple. Full range of motion. No adenopathy thyromegaly or neck vein distention. Cardiovascular examination reveals regular rhythm rate. S1-S2 normal. No S3 or S4. No discernible murmur noted. Lungs reveal diffuse bilateral rhonchi. A few scattered bibasilar crackles are also noted. Breath sounds are equal bilaterally. No wheezes. Abdomen soft bowel sounds are heard. No masses or tenderness. Extremities are intact. No cyanosis clubbing or edema. Skin is without rash or lesion. Neurologic examination is brief but nonfocal. - Labs CBC & Chem 7: 06/15/20 07:29 06/15/20 07:29 Labs: Abnormal Lab Results - Last 24 Hours (Table) 06/15/20 Range/Units 07:29 BUN 20 H (7-17) mg/dL Glucose 134 H (74-99) mg/dL Assessment and Plan Plan: 1 Acute hypoxemic respiratory failure secondary to COVID 19 pneumonia. The patient was treated with a combination of Decadron, zinc, vitamin C and vitamin D 3 and the patient is also on REM. She is still on 4 L of oxygen by nasal cannula. 2 History of hypertension. 3 History of lithotripsy. Plan She will be continued on REM and she is currently on day #5, as well as Decadron, zinc, vitamin C, vitamin D3, Lovenox, and Decadron. She remains on oxygen therapy at 4 L. Saturations are only 91%. Lovenox 40 mg subcu for DVT prophylaxis. Lungs are irregular crackling and chest x-ray is probably slightly worse on the left. Attempt to wean down the FiO2 further if possible. She is down to 4 L Possible home w tomorrow with home oxygen will continue to follow the patient's progress.
[2020-06-15] MEDS: amLODIPine 5 MG TAB PO SCH (15:30)
[2020-06-15] MEDS ORDERED: NITROGLYCERIN SL TABS 0.4 MG TAB SUBLINGUAL STA (17:25)
--- NOTE | 2020-06-15 18:56 | PN ---
PROGRESS NOTE DATE OF SERVICE: 06/15/2020 REASON FOR FOLLOWUP: COVID-19 pneumonia. INTERVAL HISTORY: The patient is currently afebrile. The patient is breathing slightly comfortably today. The patient denies having any chest pain. She did have a cough, not bringing up any sputum. No nausea, no vomiting, no abdominal pain or diarrhea. PHYSICAL EXAMINATION: Blood pressure 149/88 with a pulse of 70, temperature 97.7. She is 91% on 3 L nasal cannula. General description is a middle-aged female up in the bed in no distress. RESPIRATORY SYSTEM: Unlabored breathing with decreased intensity of breath sounds. No wheeze. HEART: S1, S2. Regular rate and rhythm. ABDOMEN: Soft. No tenderness. LABS: Hemoglobin is 13, white count 10.5, BUN of 20, creatinine 0.61. DIAGNOSTIC IMPRESSION AND PLAN: Patient with acute COVID-19 pneumonia. This patient has completed her remdesivir therapy, currently on dexamethasone, Lovenox, zinc, ascorbic acid along with respiratory support. Monitor clinical course closely. MMODL / IJN: [id number] /
[2020-06-15] MEDS: SERTRALINE 100 MG TAB PO SCH (21:44)
[2020-06-16] MEDS: ZINC SULFATE 220 MG CAP PO SCH (07:43)
[2020-06-16] MEDS: ASCORBIC ACID 500 MG TAB PO SCH (07:43)
[2020-06-16] MEDS: dexAMETHasone 2 MG TAB PO SCH (07:43)
[2020-06-16] MEDS: CHOLECALCIFEROL 25 MCG (1000 IU) TABLET PO SCH (07:43)
[2020-06-16] MEDS: amLODIPine 5 MG TAB PO SCH (07:43)
[2020-06-16] MEDS: MULTIVITAMINS, THERA 1 EACH TAB PO SCH (07:43)
[2020-06-16] MEDS: ENOXAPARIN 40 MG/0.4 ML SYRINGE SQ SCH (07:44)
[2020-06-16] MEDS: LOSARTAN 50 MG TAB PO SCH (07:44)
[2020-06-16 10:28] VITALS: RESP 18
[2020-06-16 11:12] VITALS: BMI 40.8
--- NOTE | 2020-06-16 14:20 | P.PN ---
Subjective Progress Note Date: 06/16/20 Principal diagnosis: COVID 19 pneumonia 44-year-old female, who presents to the emergency department, on June 10, complaining of shortness of breath, cough, chest congestion, fever, chills, muscle aches, and joint aches. She tested positive for COVID 19 on Friday. She has had symptoms for about 7 days. Her symptoms have gotten progressively worse. She denies any chest pain or pressure although she denies described pain in her chest when she coughs. She had slight nausea without vomiting. She was seen in the emergency room, and admitted with a diagnosis of COVID 19 pneumonia, and hypoxemic respiratory failure. Chest x-ray showed diffuse scattered infiltrates bilaterally, and computed tomography scan was negative for pulmonary embolism, but did show bilateral scattered groundglass opacities that are consistent with COVID 19. Currently, the patient's on 3 L nasal cannula. White count 9.6, hemoglobin 13.9, hematocrit 41.7, platelet count 202,000. PT INR and PTT all normal. D-dimer was 0.75. Sodium 133, potassium 4.1, chloride 97, CO2 22, anion gap 14, BUN 15, and creatinine 0.60. Progress note dated 06/11/2020. 44-year-old female who presented to the emergency department on June 10, complaining of shortness of breath, cough, chest congestion, fever, chills, muscle and joint aches. She tested positive for COVID 19 on Friday. Currently, temperature 98.1. She's on 3 L of nasal oxygen, with saturation of 91%. Heart rate is 86, respiratory rate 20. Blood pressure is stable. She's feeling only marginally better today. Her chest x-ray showed diffuse bilateral infiltrates, and computed tomography scan showed no evidence of pulmonary e mbolism, but did show bilateral scattered groundglass opacities. White count 11.3, hemoglobin 13.6, hematocrit 41.5, platelet count 241,000. He time is 0.75. Sodium 133, potassium 3.4, chlorides 97, CO2 28, anion gap 8, BUN 16, creatinine 0.65. On 06/12/2020, the patient feels that she is having a better day today. She is still on the same treatment and she is completing the course of REM in addition to Decadron. The patient is still having crackles in lung bases bilaterally. No fever. No chills. The LDH level was 407 which is lower. The ferritin level was 1106 and a CRP level has not been measured today. D-dimer level has been 0.75. As for the patient's chest x-ray, she had diffuse bilateral pulmonary infiltrates on examination she still having crackles in the lungs bilaterally. She is currently on 4 L of oxygen by nasal cannula. Her infiltrates are perihilar more so in the left compared to right although there is some infiltration the periphery of the right upper lobe area. On today's evaluation of 06/13/2012 on the patient remains on 4 L about 2 by nasal cannula with a pulse of 72%. Essentially same as yesterday. She is on Decadron. She is on REM and she is on day #4. In terms of her oxygenation, findings have been essentially stable on 4 L of oxygen by nasal cannula without any significant improvement. The chest x-ray from today showed bilateral perihilar pulmonary infiltrates mainly in the left perihilar and right upper lobe area. The findings on the left are probably worse. The right lung seems to be better aerated for now. He had a oxygenation remains essentially stable for now. Blood work from they still pending. She is afebrile. No nausea or vomiting or diarrhea or abdominal pain. She is coughing. On 06/14/2020 patient seen in follow-up on medical surgical floor. Patient is awake and alert, no acute distress, she is on 4 L of oxygen, her pulse ox is 92%. She is afebrile, hemodynamically she is stable. Today's chest x-ray shows persistent patchy perihilar and basilar infiltrates. Today's labs have been reviewed, showing d-dimer uptrending slightly, and up to 1.79 on today's labs, LDH of 429, and CRP of 5.6, and inflammatory markers are overall improving since admission. Patient completed her Remdesivir treatment today. She is breathing more comfortably overall, she still has coughing spells at times, she has had no nausea vomiting or diarrhea, no abdominal pain, she is tolerating oral diet. On 06/16/2020 patient seen in follow-up on medical surgical floor, she is resting comfortably in bed, in no acute distress, on 3 L of oxygen pulse ox is 95%. Afebrile, no chest discomfort, still has some exertional dyspnea, but no acute distress, cough is nonproductive. No nausea vomiting or diarrhea, no abdominal pain, remains on Decadron, she has completed her Remdesivir course. Last set of inflammatory markers on 06/13/2020 were improving since admission. Chest x-ray on 06/14/2020 showed persistent patchy perihilar and basilar infiltrates. However clinically she has improved, has remained stable, we'll obtain home oxygen assessment, we'll consider the patient for discharge home today Objective - Vital Signs Vital signs: Vital Signs Temp 98.2 F 06/16/20 09:49 Pulse 70 06/16/20 09:49 Resp 18 06/16/20 09:49 BP 145/78 06/16/20 09:49 Pulse Ox 95 06/16/20 09:49 Intake & Output 06/15/20 06/16/20 06/16/20 18:59 06:59 18:59 Weight 111.266 kg Other: Voiding Method Toilet Toilet # Voids 5 - Exam GENERAL EXAM: Alert, very pleasant 44-year-old white female, on 3 L of oxygen with a pulse ox of 95% comfortable in no apparent distress. HEAD: Normocephalic/atraumatic. EYES: Normal reaction of pupils, equal size. Conjunctiva pink, sclera white. NOSE: Clear with pink turbinates. THROAT: No erythema or exudates. NECK: No masses, no JVD, no thyroid enlargement, no adenopathy. CHEST: No chest wall deformity. Symmetrical expansion. LUNGS: Equal air entry with diffuse bilateral crackles CVS: Regular rate and rhythm, normal S1 and S2, no gallops, no murmurs, no rubs ABDOMEN: Soft, nontender. No hepatosplenomegaly, normal bowel sounds, no guarding or rigidity. EXTREMITIES: No clubbing, no edema, no cyanosis, 2+ pulses and upper and lower extremities. MUSCULOSKELETAL: Muscle strength and tone normal. SPINE: No scoliosis or deformity SKIN: No rashes CENTRAL NERVOUS SYSTEM: Alert and oriented -3. No focal deficits, tone is normal in all 4 extremities. PSYCHIATRIC: Alert and oriented -3. Appropriate affect. Intact judgment and insight. - Labs CBC & Chem 7: 06/15/20 07:29 06/15/20 07:29 Assessment and Plan Plan: Assessment: 1 Acute hypoxemic respiratory failure secondary to COVID 19 pneumonia. The patient was treated with a combination of Decadron, zinc, vitamin C and vitamin D 3 patient has completed Remdesivir 2 History of hypertension. 3 History of lithotripsy. Plan: Patient has completed a course of Remdesivir, continues on Decadron, vitamin cocktail, and continues on prophylactic dose of Lovenox, clinically improving, FiO2 is down to 3 L, will obtain home oxygen assessment, likely will require home oxygen for short amount of time after discharge until full recovery. Clinically stable, no worsening dyspnea, increase activity as tolerated, from pulmonary perspective she stable for discharge home today on home oxygen if qualifies, and she can complete outpatient course of Decadron 6 mg daily for 7 more days, and we'll give the patient prophylactic dose of oral anticoagulation in the form of Xarelto 10 mg daily for 30 days. Follow up with Dr. Cardona in the office in 2 weeks I performed a history & physical examination of the patient and discussed their management with my nurse practitioner, Dayami Blunt. I reviewed the nurse practitioner's note and agree with the documented findings and plan of care. Lung sounds are positive for diminished breath sounds with diffuse crackles. The findings and the impression was discussed with the patient. I attest to the documentation by the nurse practitioner. Time with Patient: Less than 30
--- NOTE | 2020-06-16 14:51 | P.PN ---
Subjective Progress Note Date: 06/13/20 Principal diagnosis: Acute hypoxic respiratory failure secondary to Covid 19 pneumonia 44-year-old female, who presents to the emergency department, on June 10, complaining of shortness of breath, cough, chest congestion, fever, chills, muscle aches, and joint aches. She tested positive for COVID 19 on Friday. She has had symptoms for about 7 days. Her symptoms have gotten progressively worse. She denies any chest pain or pressure although she denies described pain in her chest when she coughs. She had slight nausea without vomiting. She was seen in the emergency room, and admitted with a diagnosis of COVID 19 pneumonia, and hypoxemic respiratory failure. Chest x-ray showed diffuse scattered infiltrates bilaterally, and computed tomography scan was negative for pulmonary embolism, but did show bilateral scattered groundglass opacities that are consistent with COVID 19. Currently, the patient's on 3 L nasal cannula. White count 9.6, hemoglobin 13.9, hematocrit 41.7, platelet count 202,000. PT INR and PTT all normal. D-dimer was 0.75. Sodium 133, potassium 4.1, chloride 97, CO2 22, anion gap 14, BUN 15, and creatinine 0.60. 06/11/2020. Patient is seen and admitted resting comfortably in bed and continues to complain of shortness of breath ;Currently, temperature 98.1. She's on 3 L of nasal oxygen, with saturation of 91%. Heart rate is 86, respiratory rate 20. Blood pressure is stable. She's feeling only marginally better today. Her chest x-ray showed diffuse bilateral infiltrates, and computed tomography scan showed no evidence of pulmonary embolism, but did show bilateral scattered groundglass opacities. White count 11.3, hemoglobin 13.6, hematocrit 41.5, platelet count 241,000. He time is 0.75. Sodium 133, potassium 3.4, chlorides 97, CO2 28, anion gap 8, BUN 16, creatinine 0.65. 06/12/2020 Patient is currently lying in the bed and is still complaining of shortness of breath. Patient was complaining of chest tightness when she was walking to the bathroom. Still requiring oxygen at 4 L via nasal cannula. Patient is being continued on remdesivir day 3 along with dexamethasone, Lovenox and multivitamins. Elevated inflammatory markers. Chest x-ray showed diffuse bilateral pulmonary infiltrates on examination. Patient has been afebrile. No complaints of nausea vomiting or abdominal pain or diarrhea. Tolerating oral diet. Pulmonary is on board. 06/13/2020 Patient is currently sitting in a chair. Awake alert oriented 3. Still requiring 4 L oxygen via nasal cannula and is complaining of exertional dyspnea and chest tightness. Chest x-ray showed bilateral perihilar pulmonary infiltrates mainly in the left. He had an right upper lobe area. Worse compared to yesterday on the left side. Patient's oxygen requirements remains the same. Patient has been afebrile. No complaints of chest pain. No nausea vomiting or abdominal pain. Tolerating oral diet. No diarrhea. Continued on dexamethasone and Lovenox. Discussed with the pulmonary team. Current medications reviewed. Objective - Vital Signs Vital signs: Vital Signs Temp 97.8 F 06/13/20 14:00 Pulse 82 06/13/20 14:00 Resp 19 06/13/20 14:00 BP 144/75 06/13/20 14:00 Pulse Ox 92 L 06/13/20 14:00 Intake & Output 06/12/20 06/13/20 06/13/20 18:59 06:59 18:59 Other: Voiding Method Toilet # Voids 3 2 # Bowel Movements 1 - Exam PHYSICAL EXAMINATION: GENERAL: The patient is alert and oriented x3, not in any acute distress. Well developed, well nourished. HEENT: Pupils are round and equally reacting to light. EOMI. No scleral icterus. No conjunctival pallor. Normocephalic, atraumatic. No pharyngeal erythema. No thyromegaly. CARDIOVASCULAR: S1 and S2 present. No murmurs, rubs, or gallops. PULMONARY: Bibasilar crackles. No wheezing. Nonlabored breathing at rest.. ABDOMEN: Soft, nontender, nondistended, normoactive bowel sounds. No palpable organomegaly. MUSCULOSKELETAL: No joint swelling or deformity. EXTREMITIES: No cyanosis, clubbing, or pedal edema. NEUROLOGICAL: Gross neurological examination did not reveal any focal deficits. SKIN: No rashes. - Labs CBC & Chem 7: 06/15/20 07:29 06/15/20 07:29 Labs: Abnormal Lab Results - Last 24 Hours (Table) 06/13/20 06/13/20 Range/Units 06:57 06:57 D-Dimer 1.08 H (<0.60) mg/L FEU Lactate Dehydrogenase 429 H (120-246) U/L Assessment and Plan Assessment: 1. Acute hypoxemic respiratory failure - O2 per nasal cannula and titrated to keep SpO2 greater than 90-92%. Currently on 4 L oxygen via nasal cannula. 2. Covid 19 viral pneumonia - patient's symptoms began about 7 days ago,Continue with remdesivir day 3 as well as Decadron, zinc, vitamin C, vitamin D3, Lovenox. -Titrate down oxygen as tolerated. 3. Hypertension; losartan 50 mg by mouth daily 4. Transaminitis; possibly secondary to 2; we will continue to monitor liver enzymes with plans to order hepatic ultrasound if liver enzymes continue to trend up. improving. 5. Depression; Zoloft 100 mg by mouth daily at bedtime DVT prophylaxis; SCDs/subcu Lovenox CODE STATUS; full code Time with Patient: Greater than 30
--- NOTE | 2020-06-16 14:53 | P.PN ---
Subjective Progress Note Date: 06/14/20 Principal diagnosis: Acute hypoxic respiratory failure secondary to Covid 19 pneumonia 44-year-old female, who presents to the emergency department, on June 10, complaining of shortness of breath, cough, chest congestion, fever, chills, muscle aches, and joint aches. She tested positive for COVID 19 on Friday. She has had symptoms for about 7 days. Her symptoms have gotten progressively worse. She denies any chest pain or pressure although she denies described pain in her chest when she coughs. She had slight nausea without vomiting. She was seen in the emergency room, and admitted with a diagnosis of COVID 19 pneumonia, and hypoxemic respiratory failure. Chest x-ray showed diffuse scattered infiltrates bilaterally, and computed tomography scan was negative for pulmonary embolism, but did show bilateral scattered groundglass opacities that are consistent with COVID 19. Currently, the patient's on 3 L nasal cannula. White count 9.6, hemoglobin 13.9, hematocrit 41.7, platelet count 202,000. PT INR and PTT all normal. D-dimer was 0.75. Sodium 133, potassium 4.1, chloride 97, CO2 22, anion gap 14, BUN 15, and creatinine 0.60. 06/11/2020. Patient is seen and admitted resting comfortably in bed and continues to complain of shortness of breath ;Currently, temperature 98.1. She's on 3 L of nasal oxygen, with saturation of 91%. Heart rate is 86, respiratory rate 20. Blood pressure is stable. She's feeling only marginally better today. Her chest x-ray showed diffuse bilateral infiltrates, and computed tomography scan showed no evidence of pulmonary embolism, but did show bilateral scattered groundglass opacities. White count 11.3, hemoglobin 13.6, hematocrit 41.5, platelet count 241,000. He time is 0.75. Sodium 133, potassium 3.4, chlorides 97, CO2 28, anion gap 8, BUN 16, creatinine 0.65. 06/12/2020 Patient is currently lying in the bed and is still complaining of shortness of breath. Patient was complaining of chest tightness when she was walking to the bathroom. Still requiring oxygen at 4 L via nasal cannula. Patient is being continued on remdesivir day 3 along with dexamethasone, Lovenox and multivitamins. Elevated inflammatory markers. Chest x-ray showed diffuse bilateral pulmonary infiltrates on examination. Patient has been afebrile. No complaints of nausea vomiting or abdominal pain or diarrhea. Tolerating oral diet. Pulmonary is on board. 06/13/2020 Patient is currently sitting in a chair. Awake alert oriented 3. Still requiring 4 L oxygen via nasal cannula and is complaining of exertional dyspnea and chest tightness. Chest x-ray showed bilateral perihilar pulmonary infiltrates mainly in the left. He had an right upper lobe area. Worse compared to yesterday on the left side. Patient's oxygen requirements remains the same. Patient has been afebrile. No complaints of chest pain. No nausea vomiting or abdominal pain. Tolerating oral diet. No diarrhea. Continued on dexamethasone and Lovenox. Discussed with the pulmonary team. 06/14/2020 Patient is currently sitting in the chair. Remains on for greater oxygen via nasal cannula and saturating at 92%. Chest x-ray showed persistent patchy. Alert and basilar infiltrates. Patient says that she feels slightly better compared to yesterday. Still having exertional dyspnea. Laboratory data showed d-dimer 1.79 and LDH 429, CRP 5.6. Patient did complete her REM course today day 5. Continued on dexamethasone, Lovenox and multivitamins. Discussed with pulmonary and ID. Current medications reviewed. Objective - Vital Signs Vital signs: Vital Signs Temp 98.1 F 06/14/20 14:57 Pulse 78 06/14/20 14:57 Resp 15 06/14/20 14:57 BP 162/92 06/14/20 14:57 Pulse Ox 89 L 06/14/20 14:57 Intake & Output 06/13/20 06/14/20 06/14/20 18:59 06:59 18:59 Other: Voiding Method Toilet # Voids 3 2 1 - Exam PHYSICAL EXAMINATION: GENERAL: The patient is alert and oriented x3, not in any acute distress. Well developed, well nourished. HEENT: Pupils are round and equally reacting to light. EOMI. No scleral icterus. No conjunctival pallor. Normocephalic, atraumatic. No pharyngeal erythema. No thyromegaly. CARDIOVASCULAR: S1 and S2 present. No murmurs, rubs, or gallops. PULMONARY: Bibasilar crackles. No wheezing. Nonlabored breathing at rest.. ABDOMEN: Soft, nontender, nondistended, normoactive bowel sounds. No palpable organomegaly. MUSCULOSKELETAL: No joint swelling or deformity. EXTREMITIES: No cyanosis, clubbing, or pedal edema. NEUROLOGICAL: Gross neurological examination did not reveal any focal deficits. SKIN: No rashes. - Labs CBC & Chem 7: 06/15/20 07:29 06/15/20 07:29 Labs: Abnormal Lab Results - Last 24 Hours (Table) 06/14/20 Range/Units 05:36 D-Dimer 1.79 H (<0.60) mg/L FEU Assessment and Plan Assessment: 1. Acute hypoxemic respiratory failure - O2 per nasal cannula and titrated to keep SpO2 greater than 90-92%. Currently on 4 L oxygen via nasal cannula. 2. Covid 19 viral pneumonia - patient's symptoms began about 7 days ago,Continue with remdesivir day 3 as well as Decadron, zinc, vitamin C, vitamin D3, Lovenox. -Titrate down oxygen as tolerated. 3. Hypertension; losartan 50 mg by mouth daily 4. Transaminitis; possibly secondary to 2; we will continue to monitor liver enzymes with plans to order hepatic ultrasound if liver enzymes continue to trend up. improving. 5. Depression; Zoloft 100 mg by mouth daily at bedtime DVT prophylaxis; SCDs/subcu Lovenox CODE STATUS; full code Time with Patient: Greater than 30
--- NOTE | 2020-06-16 14:59 | P.PN ---
Subjective Progress Note Date: 06/15/20 Principal diagnosis: Acute hypoxic respiratory failure secondary to Covid 19 pneumonia 44-year-old female, who presents to the emergency department, on June 10, complaining of shortness of breath, cough, chest congestion, fever, chills, muscle aches, and joint aches. She tested positive for COVID 19 on Friday. She has had symptoms for about 7 days. Her symptoms have gotten progressively worse. She denies any chest pain or pressure although she denies described pain in her chest when she coughs. She had slight nausea without vomiting. She was seen in the emergency room, and admitted with a diagnosis of COVID 19 pneumonia, and hypoxemic respiratory failure. Chest x-ray showed diffuse scattered infiltrates bilaterally, and computed tomography scan was negative for pulmonary embolism, but did show bilateral scattered groundglass opacities that are consistent with COVID 19. Currently, the patient's on 3 L nasal cannula. White count 9.6, hemoglobin 13.9, hematocrit 41.7, platelet count 202,000. PT INR and PTT all normal. D-dimer was 0.75. Sodium 133, potassium 4.1, chloride 97, CO2 22, anion gap 14, BUN 15, and creatinine 0.60. 06/11/2020. Patient is seen and admitted resting comfortably in bed and continues to complain of shortness of breath ;Currently, temperature 98.1. She's on 3 L of nasal oxygen, with saturation of 91%. Heart rate is 86, respiratory rate 20. Blood pressure is stable. She's feeling only marginally better today. Her chest x-ray showed diffuse bilateral infiltrates, and computed tomography scan showed no evidence of pulmonary embolism, but did show bilateral scattered groundglass opacities. White count 11.3, hemoglobin 13.6, hematocrit 41.5, platelet count 241,000. He time is 0.75. Sodium 133, potassium 3.4, chlorides 97, CO2 28, anion gap 8, BUN 16, creatinine 0.65. 06/12/2020 Patient is currently lying in the bed and is still complaining of shortness of breath. Patient was complaining of chest tightness when she was walking to the bathroom. Still requiring oxygen at 4 L via nasal cannula. Patient is being continued on remdesivir day 3 along with dexamethasone, Lovenox and multivitamins. Elevated inflammatory markers. Chest x-ray showed diffuse bilateral pulmonary infiltrates on examination. Patient has been afebrile. No complaints of nausea vomiting or abdominal pain or diarrhea. Tolerating oral diet. Pulmonary is on board. 06/13/2020 Patient is currently sitting in a chair. Awake alert oriented 3. Still requiring 4 L oxygen via nasal cannula and is complaining of exertional dyspnea and chest tightness. Chest x-ray showed bilateral perihilar pulmonary infiltrates mainly in the left. He had an right upper lobe area. Worse compared to yesterday on the left side. Patient's oxygen requirements remains the same. Patient has been afebrile. No complaints of chest pain. No nausea vomiting or abdominal pain. Tolerating oral diet. No diarrhea. Continued on dexamethasone and Lovenox. Discussed with the pulmonary team. 06/14/2020 Patient is currently sitting in the chair. Remains on for greater oxygen via nasal cannula and saturating at 92%. Chest x-ray showed persistent patchy. Alert and basilar infiltrates. Patient says that she feels slightly better compared to yesterday. Still having exertional dyspnea. Laboratory data showed d-dimer 1.79 and LDH 429, CRP 5.6. Patient did complete her REM course today day 5. Continued on dexamethasone, Lovenox and multivitamins. Discussed with pulmonary and ID. 06/15/2020 Patient is currently sitting on the side of the bed comfortably. Currently on 3-4 L oxygen via nasal cannula. Patient says that she feels better but having exertional dyspnea and chest tightness at times. No fever no chills. No nausea vomiting or abdominal pain or diarrhea. No chest pain. Currently being continued on dexamethasone, Lovenox and multivitamins. Patient will require home oxygen. Possible discharge in next 24 hours with sussy hart clinical improvement. Current medications reviewed. Objective - Vital Signs Vital signs: Vital Signs Temp 97.8 F 06/15/20 22:18 Pulse 74 06/15/20 22:18 Resp 18 06/15/20 22:18 BP 143/82 06/15/20 22:18 Pulse Ox 91 L 06/15/20 22:18 Intake & Output 06/15/20 06/15/20 06/16/20 06:59 18:59 06:59 Other: Voiding Method Toilet # Voids 0 5 - Exam PHYSICAL EXAMINATION: GENERAL: The patient is alert and oriented x3, not in any acute distress. Well developed, well nourished. HEENT: Pupils are round and equally reacting to light. EOMI. No scleral icterus. No conjunctival pallor. Normocephalic, atraumatic. No pharyngeal erythema. No thyromegaly. CARDIOVASCULAR: S1 and S2 present. No murmurs, rubs, or gallops. PULMONARY: Bibasilar crackles. No wheezing. Nonlabored breathing at rest.. ABDOMEN: Soft, nontender, nondistended, normoactive bowel sounds. No palpable organomegaly. MUSCULOSKELETAL: No joint swelling or deformity. EXTREMITIES: No cyanosis, clubbing, or pedal edema. NEUROLOGICAL: Gross neurological examination did not reveal any focal deficits. SKIN: No rashes. - Labs CBC & Chem 7: 06/15/20 07:29 06/15/20 07:29 Labs: Abnormal Lab Results - Last 24 Hours (Table) 06/15/20 Range/Units 07:29 BUN 20 H (7-17) mg/dL Glucose 134 H (74-99) mg/dL Assessment and Plan Assessment: 1. Acute hypoxemic respiratory failure - O2 per nasal cannula and titrated to keep SpO2 greater than 90-92%. Currently on 3-4 L oxygen via nasal cannula. 2. Covid 19 viral pneumonia - patient's symptoms began about 7 days ago, complated remdesivir. c/w Decadron, zinc, vitamin C, vitamin D3, Lovenox. -Titrate down oxygen as tolerated. 3. Hypertension; losartan 50 mg by mouth daily 4. Transaminitis; possibly secondary to 2; improved. 5. Depression; Zoloft 100 mg by mouth daily at bedtime DVT prophylaxis; SCDs/subcu Lovenox CODE STATUS; full code Time with Patient: Greater than 30
[2020-06-16 15:39] VITALS: BP 139/71; PULSE 81; TEMP 97.8
--- NOTE | 2020-06-16 15:42 | PN ---
PROGRESS NOTE DATE OF SERVICE: 06/16/2020 REASON FOR FOLLOWUP: COVID-19 pneumonia. INTERVAL HISTORY: The patient is currently afebrile. The patient is breathing comfortably. The patient denies having any chest pain or shortness of breath. Occasional cough. No abdominal pain or diarrhea. PHYSICAL EXAMINATION: Blood pressure 145/78 with a pulse of 70, temperature 98.2. She is 95% on 3 L nasal cannula. General description is a middle-aged female up in the bed in no distress. RESPIRATORY SYSTEM: Unlabored breathing with decreased intensity of breath sounds. No wheeze. HEART: S1, S2. Regular rate and rhythm. ABDOMEN: Soft. No tenderness. LABS: No new labs have been obtained today except troponin, which is negative. DIAGNOSTIC IMPRESSION AND PLAN: Patient with acute COVID-19 infection overall clinical improvement. Has completed her remdesivir therapy. Plan for possible discharge dexamethasone, Xarelto and nasal oxygen on discharge. Close outpatient followup. Continue with supportive care. MMODL / IJN: [id number] /
== END 2020-06-16 18:27 | disposition home or self-care (01) | DRG 177 ==
LOC: EC 06:49 → 4SSUR 09:34
PROVIDERS: ADMIT Internal Medicine; ATTEND Internal Medicine
PROC: XW033E5 Introduction of Remdesivir Anti-infective into Peripheral Vein, Percutaneous Approach, New Technology Group 5 (ICD-10-PCS; principal; 2020-06-10)
PROC: 3E0D73Z Introduction of Anti-inflammatory into Mouth and Pharynx, Via Natural or Artificial Opening (ICD-10-PCS; 2020-06-10)
DX: U07.1 COVID-19 (principal); J12.82 Pneumonia due to coronavirus disease 2019; J96.01 Acute respiratory failure with hypoxia; R74.01 Elevation of levels of liver transaminase levels; D72.810 Lymphocytopenia; I10 Essential (primary) hypertension; Z90.710 Acquired absence of both cervix and uterus; Z98.890 Other specified postprocedural states; Z79.899 Other long term (current) drug therapy
CPT/HCPCS: 36415; 71045; 71046; 71275; 80048; 80053; 80076; 82728; 83605; 83615; 83735; 84484; 85025; 85379; 85610; 85730; 86140; 93005; 94760; 96365; 96366

== ENCOUNTER → 2020-10-17 | Outpatient (CLI) | payer BC ==
--- NOTE | 2020-10-19 11:28 | MM ---
Reason for exam: screening (asymptomatic). Last mammogram was performed 5 years and 7 months ago. History: Took hormonal contraceptives for 10 years. Physical Findings: A clinical breast exam by your physician is recommended on an annual basis and results should be correlated with mammographic findings. MG Screening Mammo w CAD Bilateral CC and MLO view(s) were taken. XCCL view(s) were taken of the left breast. Prior study comparison: March 31, 2015, bilateral MG screening mammo w CAD. There are scattered fibroglandular densities. There is chronic nodularity bilaterally. No significant changes when compared with prior studies. ASSESSMENT: Benign, BI-RAD 2 RECOMMENDATION: Routine screening mammogram of both breasts in 1 year.
== END | disposition home or self-care (01) ==
LOC: RADMAMWWP 15:47
PROVIDERS: ATTEND Obstetrics & Gynecology
DX: Z12.31 Encounter for screening mammogram for malignant neoplasm of breast (principal)
CPT/HCPCS: 77067

== ENCOUNTER → 2022-12-12 | Outpatient (CLI) | payer BC ==
--- NOTE | 2022-12-13 09:14 | MM ---
Reason for Exam: Screening (asymptomatic). Last mammogram was performed 2 year(s) and 2 month(s) ago. Patient History: Menarche at age 10. First Full-Term at age 16. Hysterectomy at age 31. Patient used Hormonal Contraceptives for 10 years. Risk Values: Fabiola 5 year model risk: 0.7%. NCI Lifetime model risk: 6.6%. Prior Study Comparison: 03/31/2015 Bilateral Screening Mammogram, [facility]. 10/17/2020 Bilateral Screening Mammogram, [facility]. Tissue Density: There are scattered fibroglandular densities. Findings: Analyzed By CAD. There is no suspicious group of microcalcifications or new suspicious mass in either breast. Lymph nodes in the axilla are stable dating back to multiple prior exams. Overall Assessment: Benign, BI-RAD 2 Management: Screening Mammogram of both breasts in 1 year. . Patient should continue monthly self-breast exams. A clinical breast exam by your physician is recommended on an annual basis. This exam should not preclude additional follow-up of suspicious palpable abnormalities. Note on Fabiola scores and lifetime risk: 1. A Fabiola score greater than 3% is considered moderate risk. If this is the case, consider specialist referral to assess eligibility for a risk reducing agent. 2. If overall lifetime risk for the development of breast cancer is 20% or higher, the patient may qualify for future screening with alternating mammogram and breast MRI. Electronically signed and approved by: Guille Weston M.D. Radiologis
== END | disposition home or self-care (01) ==
LOC: RADMAMWWP 15:54
PROVIDERS: ATTEND Family Medicine
DX: Z12.31 Encounter for screening mammogram for malignant neoplasm of breast (principal)
CPT/HCPCS: 77063; 77067

== ENCOUNTER 2023-01-29 09:30 | Day surgery (SDC) | payer BC ==
[~2023-01-29 09:30] MED LIST: LACTATED RINGERS 1,000 ML IV SCH; LIDOCAINE 1% (10MG/ML) FOR IV START INTRADERMA PRN
[2023-01-29 10:14] LABS: Glucose,Whole Blood 96 mg/dL (70-110)
[2023-01-29 10:15] VITALS: TEMP 97.5
[2023-01-29] MEDS ORDERED: PROPOFOL 10 MG/ML 20 ML VIAL IV ONE (10:19)
--- NOTE | 2023-01-29 10:45 | P.PCN ---
Date of Procedure: 01/29/23 Procedure(s) Performed: BRIEF HISTORY: Patient is a -47 year-old pleasant white female scheduled for an elective colonoscopy as a part of screening for colon cancer. PROCEDURE PERFORMED: Colonoscopy snare polypectomy . PREOPERATIVE DIAGNOSIS: Screening for colon cancer. IV sedation per Anesthesia. PROCEDURE: After informed consent was obtained, the patient, was brought into the endoscopy unit. IV sedation was administered by Anesthesia under continuous monitoring. Digital rectal examination was normal. Initially the Olympus CF-160 flexible video colonoscope was then inserted in the rectum, gradually advanced into the cecum without any difficulty. Careful examination was performed as the scope was gradually being withdrawn. Ileocecal valve and the appendiceal orifice were visualized and appeared normal. Prep was eFair. Mucosa of the cecum 3 mm polyp that was removed by cold snare polypectomy. , ascending colon, transverse colon, descending colon appeared normal. In the sigmoid colon there was a 8 mm polyp that was removed by snare polypectomy. Rest of the sigmoid colon, and rectum appeared normal. Retroflexion was performed in the rectum and no lesions were seen. The patient tolerated the procedure well. IMPRESSION: 3 mm cecal polyp status post cold snare polypectomy 8 mm distal sigmoid colon polyp status post snare polypectomy RECOMMENDATIONS: Findings of this examination were discussed with the patient .as well as a family. She was advised to follow with the biopsy results and if the biopsy results adenoma she can have a repeat colonoscopy in 5 years.
[2023-01-29 11:05] VITALS: PULSE 78
[2023-01-29 11:30] VITALS: BP 130/84; RESP 18
== END 2023-01-29 11:30 | disposition home or self-care (01) ==
LOC: ORWHC2ENDO 09:30
PROVIDERS: ATTEND Internal Medicine Gastroenterology
DX: Z12.11 Encounter for screening for malignant neoplasm of colon (principal); D12.5 Benign neoplasm of sigmoid colon; I10 Essential (primary) hypertension; E78.5 Hyperlipidemia, unspecified; J45.909 Unspecified asthma, uncomplicated; F32.A Depression, unspecified; Z79.84 Long term (current) use of oral hypoglycemic drugs; Z79.51 Long term (current) use of inhaled steroids; Z79.899 Other long term (current) drug therapy; Z90.710 Acquired absence of both cervix and uterus; Z98.890 Other specified postprocedural states
CPT/HCPCS: 88305; 45385; J2704

== ENCOUNTER → 2024-07-30 | Outpatient (CLI) | payer BC ==
--- NOTE | 2024-07-30 11:32 | XR ---
EXAMINATION TYPE: XR chest 2V DATE OF EXAM: 07/30/2024 CLINICAL INDICATION: Female, 48 years old with history of R059 COUGH, TECHNIQUE: Frontal and lateral views of the chest are obtained. COMPARISON: Prior chest x-ray June 14, 2020 FINDINGS: There is no focal air space opacity, pleural effusion, or pneumothorax seen. The cardiac silhouette size remains within normal limits. The osseous structures are intact. IMPRESSION: No acute pulmonary infiltrates. [facility], , 07/30/2024 11:30 AM
== END | disposition home or self-care (01) ==
LOC: RADXRYALE 11:17
PROVIDERS: ATTEND Nurse Practitioner Family
DX: R05.9 Cough, unspecified (principal)
CPT/HCPCS: 71046